=== PATIENT | female | born 1990 | race African-American/Black ===

== ENCOUNTER 2016-06-10 13:57 | Emergency (ER) | payer OTHER ==
[~2016-06-10] VITALS: Ht 157.5 cm; Wt 70.0 kg
[~2016-06-10 13:57] MED LIST: ALBU2TAB4 PO; ARIP1TAB5 PO; ARIP400I IM; CLON.5 PO; CLON0.1T PO; FERR1TAB36 PO; METF500T PO; PROZ20CA11 PO; VENTAER INH; ZANT150T2 PO
[2016-06-10 14:02] VITALS: BP 123/47; PULSE 81; RESP 14; TEMP 98.9; O2SAT 99
[2016-06-10] MEDS ORDERED: SODIUM CHLORIDE 0.9% FLUSH 5 ML FLUSH IVF PRN (14:15)
--- NOTE | 2016-06-10 14:31 | PD ---
HPI Chief Complaint: Seizure Time Seen by Provider: 14:09 Travel History International Travel<30 days: No Contact w/Intl Traveler<30days: No Traveled to known affect area: No History of Present Illness HPI Patient is a 26-year-old Re[place] female who presents to the emergency department via EMS after possible seizure. The patient states she has a history of seizures, was taken off of her medication by her psychiatrist, Dr. Flowers, at [facility]. The patient states she was at a friend's house sitting in a chair, when she suddenly fell 4, striking the front of her face on a chair, and then fallen asleep for approximately 30 minutes. The patient states her friends were calling out to her, but she did not awaken. When the patient did awaken she thought she might of had a seizure. She denies any tongue trauma or urinary incontinence. The patient denies any seizure-like activity. She denies any current headache, neck pain, chest pain, shortness breath, nausea, vomiting, or abdominal pain. She denies illicit drug use or alcohol use. PFSH Past Medical History Asthma: Yes Bipolar Disorder: Yes Anxiety: Yes Depression: Yes Cancer: No Cardiovascular Problems: No Cerebrovascular Accident: Yes Diabetes: Yes Diminished Hearing: No Endocrine: No Gastrointestinal Disorders: No Headaches: No Implanted Vascular Access Dvce: No Musculoskeletal: No Neurologic: Yes Psychiatric: Yes Respiratory: Yes (asthma) Seizures: Yes : 0 Para: 0 Miscarriage: 0 : 0 Past Surgical History Appendectomy: Yes Other Surgery: Yes Social History Alcohol Use: No Tobacco Use: Yes (1/2 PPD) Substance Use: No Allergies-Medications (Allergen,Severity, Reaction): Coded Allergies: Latuda (Verified Allergy, Severe, SEIZURE, 05/24/16) Cream (Unverified Allergy, Unknown, 05/24/16) new face soap Geodon (Verified Allergy, Unknown, Seizures, 05/24/16) pt claims she had "two seizures" while taking Geodon. *MDRO Multi-Drug Resistant Organism (Unverified Adverse Reaction, Unknown , 05/24/16) MRSA finger wound in 2004 & 2005. MRSA PCR Screen positive 11/28/14. Reported Meds & Prescriptions Reported Meds & Active Scripts Active Klonopin (Clonazepam) 0.5 Mg Tab 0.5 Mg PO BID Prozac (Fluoxetine HCl) 20 Mg Cap 20 Mg PO DAILY Clonidine (Clonidine HCl) 0.1 Mg Tab 0.1 Mg PO 1 - 2 HS Abilify Maintena ER Inj (Aripiprazole) 400 Mg Susp 400 Mg IM MONTHLY Reported Zantac (Ranitidine HCl) Unknown Strength Tab Unknown Dose PO BID Metformin (Metformin HCl) Unknown Strength Tab Unknown Dose PO BIDPC With meals Iron (Ferrous Sulfate) Unknown Strength Tab Unknown Dose PO BIDPC Take after a meal. Albuterol (Albuterol Sulfate) Unknown Strength Tab Unknown Dose PO TID Abilify (Aripiprazole) 10 Mg Tab 10 Mg PO HS Ventolin Hfa 18 GM Inh (Albuterol Sulfate) Unknown Strength Aer Unknown Dose INH Q4H PRN Review of Systems Except as stated in HPI: all other systems reviewed are Neg General / Constitutional: No: Fever Eyes: No: Blurred Vision HENT: No: Headaches, Lightheadedness, Neck Pain Cardiovascular: No: Chest Pain or Discomfort Respiratory: No: Shortness of Breath Gastrointestinal: No: Nausea, Abdominal Pain Genitourinary: No: Incontinence Musculoskeletal: No: Weakness Neurologic: Positive: Seizures Psychiatric: Positive: Mood Disorder (bipolar affective disorder) Physical Exam Narrative GENERAL: Awake, alert, 26-year-old female who appears her stated age and is in no acute respiratory distress. SKIN: Warm and dry. HEAD: Atraumatic. Normocephalic. No visible hematomas. EYES: Pupils equal and round. Extraocular. The left eye. ENT: No nasal bleeding or discharge. Mucous membranes pink and moist. NECK: Trachea midline. No JVD. CARDIOVASCULAR: Regular rate and rhythm. No murmur appreciated. RESPIRATORY: No accessory muscle use. Clear to auscultation. Breath sounds equal bilaterally. GASTROINTESTINAL: Abdomen soft, non-tender, nondistended. No rebound tenderness. MUSCULOSKELETAL: No obvious deformities. No clubbing. No cyanosis. No edema. NEUROLOGICAL: Awake and alert. No obvious cranial nerve deficits. Motor grossly within normal limits. Normal speech. Nonfocal. Oriented 4. PSYCHIATRIC: Appropriate mood and affect; insight and judgment normal. Data Data Last Documented VS Vital Signs Date Time Temp Pulse Resp B/P Pulse Ox O2 Delivery O2 Flow Rate FiO2 06/10/16 14:02 98.9 81 14 123/47 99 Orders Complete Blood Count With Diff (06/10/16 14:14) Electrocardiogram (06/10/16 ) Blood Glucose (06/10/16 14:14) Ecg Monitoring (06/10/16 14:14) Iv Access Insert/Monitor (06/10/16 14:14) Oximetry (06/10/16 14:14) Comprehensive Metabolic Panel (06/10/16 14:14) Sodium Chloride 0.9% Flush (Ns Flush) (06/10/16 14:15) Lactic Acid (06/10/16 14:14) Labs Laboratory Tests Test 06/10/16 14:30 White Blood Count 5.0 TH/MM3 Red Blood Count 4.38 MIL/MM3 Hemoglobin 12.2 GM/DL Hematocrit 36.7 % Mean Corpuscular Volume 83.9 FL Mean Corpuscular Hemoglobin 27.8 PG Mean Corpuscular Hemoglobin 33.1 % Concent Red Cell Distribution Width 13.9 % Platelet Count 307 TH/MM3 Mean Platelet Volume 9.4 FL Neutrophils (%) (Auto) 54.2 % Lymphocytes (%) (Auto) 31.8 % Monocytes (%) (Auto) 7.4 % Eosinophils (%) (Auto) 5.9 % Basophils (%) (Auto) 0.7 % Neutrophils # (Auto) 2.7 TH/MM3 Lymphocytes # (Auto) 1.6 TH/MM3 Monocytes # (Auto) 0.4 TH/MM3 Eosinophils # (Auto) 0.3 TH/MM3 Basophils # (Auto) 0.0 TH/MM3 CBC Comment DIFF FINAL Differential Comment Sodium Level 138 MEQ/L Potassium Level 4.4 MEQ/L Chloride Level 106 MEQ/L Carbon Dioxide Level 26.9 MEQ/L Anion Gap 5 MEQ/L Blood Urea Nitrogen 8 MG/DL Creatinine 0.63 MG/DL Estimat Glomerular Filtration 136 ML/MIN Rate Random Glucose 107 MG/DL Lactic Acid Level 1.8 mmol/L Calcium Level 9.2 MG/DL Total Bilirubin 0.2 MG/DL Aspartate Amino Transf 35 U/L (AST/SGOT) Alanine Aminotransferase 29 U/L (ALT/SGPT) Alkaline Phosphatase 162 U/L Total Protein 7.8 GM/DL Albumin 3.4 GM/DL [facility] Medical Decision Making Medical Screen Exam Complete: Yes Emergency Medical Condition: Yes Medical Record Reviewed: Yes Interpretation(s) EKG reveals supraventricular rhythm with a rate 86. No ischemic changes noted. Laboratory Tests Test 06/10/16 14:30 White Blood Count 5.0 TH/MM3 Red Blood Count 4.38 MIL/MM3 Hemoglobin 12.2 GM/DL Hematocrit 36.7 % Mean Corpuscular Volume 83.9 FL Mean Corpuscular Hemoglobin 27.8 PG Mean Corpuscular Hemoglobin 33.1 % Concent Red Cell Distribution Width 13.9 % Platelet Count 307 TH/MM3 Mean Platelet Volume 9.4 FL Neutrophils (%) (Auto) 54.2 % Lymphocytes (%) (Auto) 31.8 % Monocytes (%) (Auto) 7.4 % Eosinophils (%) (Auto) 5.9 % Basophils (%) (Auto) 0.7 % Neutrophils # (Auto) 2.7 TH/MM3 Lymphocytes # (Auto) 1.6 TH/MM3 Monocytes # (Auto) 0.4 TH/MM3 Eosinophils # (Auto) 0.3 TH/MM3 Basophils # (Auto) 0.0 TH/MM3 CBC Comment DIFF FINAL Differential Comment Sodium Level 138 MEQ/L Potassium Level 4.4 MEQ/L Chloride Level 106 MEQ/L Carbon Dioxide Level 26.9 MEQ/L Anion Gap 5 MEQ/L Blood Urea Nitrogen 8 MG/DL Creatinine 0.63 MG/DL Estimat Glomerular Filtration 136 ML/MIN Rate Random Glucose 107 MG/DL Lactic Acid Level 1.8 mmol/L Calcium Level 9.2 MG/DL Total Bilirubin 0.2 MG/DL Aspartate Amino Transf 35 U/L (AST/SGOT) Alanine Aminotransferase 29 U/L (ALT/SGPT) Alkaline Phosphatase 162 U/L Total Protein 7.8 GM/DL Albumin 3.4 GM/DL Differential Diagnosis Differential diagnosis includes seizure, pseudoseizure, syncope, psychiatric disorder, electrolyte abnormality, arrhythmia. Narrative Course Established, labs wer drawn and sent, and the patient was monitored in the emergency department. EKG was ordered and interpreted. The patient's EKG is unremarkable. Lactic acid is normal, I doubt significant seizure activity. Bicarbonate is normal. Electrolytes including sodium and calcium are normal. Patient was monitored in the emergency department and was stable. There is no further seizure activity or syncopal episode activity. Patient does have underlying psychiatric disorder, she is advised to follow-up with her psychiatrist. Diagnosis Primary Impression: Seizure Patient Instructions: General Instructions Additional Instructions: Follow-up with her primary physician. Return if symptoms worsen or progress. Disposition: 01 DISCHARGE HOME Condition: Stable Demond Lind MD Jun 10, 2016 14:31
[2016-06-10 15:02] LABS: AUTOMATED NEUTROPHIL # 2.7 TH/MM3 (1.8-7.7); BASOPHIL % 0.7 % (0.0-2.0); EOSINOPHIL # 0.3 TH/MM3 (0-0.4); EOSINOPHIL % 5.9 % (0.0-4.0); HEMATOCRIT 36.7 % (35.0-46.0); HEMO FLAGS DIFF FINAL; LYMPH % 31.8 % (9.0-44.0); LYMPHOCYTE # 1.6 TH/MM3 (1.0-4.8); MEAN CELL VOLUME 83.9 FL (80.0-100.0); MEAN CORPUSCULAR HEMOGLOBIN 27.8 PG (27.0-34.0); MEAN CORPUSCULAR HGB CONC 33.1 % (32.0-36.0); MONO % 7.4 % (0.0-8.0); NEUT % 54.2 % (16.0-70.0); PLATELET COUNT 307 TH/MM3 (150-450); RED BLOOD COUNT 4.38 MIL/MM3 (4.00-5.30); RED CELL DISTRIBUTION WIDTH 13.9 % (11.6-17.2)
[2016-06-10 15:24] LABS: ALKALINE PHOSPHATASE 162 U/L (45-117); ALT (GPT) 29 U/L (10-53); ANION GAP 5 MEQ/L (5-15); AST (GOT) 35 U/L (15-37); BICARBONATE 26.9 MEQ/L (21.0-32.0); BLOOD UREA NITROGEN 8 MG/DL (7-18); CHLORIDE 106 MEQ/L (98-107); GLOMERULAR FILTRATION RATE 136 ML/MIN (>89); SODIUM (NA) 138 MEQ/L (136-145); TOTAL BILIRUBIN ADULT 0.2 MG/DL (0.2-1.0)
[2016-06-10 15:26] LABS: POTASSIUM 4.4 MEQ/L (3.5-5.1)
[2016-06-10 18:00] VITALS: BP 136/40; PULSE 80; RESP 14; O2SAT 97
--- NOTE | 2016-06-10 22:03 | EKG ---
Date Performed: 06/10/2016 Time Performed: 14:33:00 PTAGE: 26 years EKG: Normal Sinus rhythm MODERATE VOLTAGE CRITERIA FOR LVH, CONSIDER NORMAL VARIANT BORDERLINE ECG INTERPRETATION BASED ON A DEFAULT AGE OF 40 YEARS PREVIOUS TRACING : 11/06/2015 12.20 Since previous tracing, no significant change noted DOCTOR: Saulo Swain Interpretating Date/Time 06/10/2016 22:01:45
[2016-06-21] MEDS ORDERED: ARIP400I IM (11:05)
[2016-06-22] MEDS ORDERED: LO LTAB PO (15:54)
[2016-07-27] MEDS ORDERED: ARIP400I IM ×2 (11:22→13:52)
[2016-08-24] MEDS ORDERED: ARIP400I IM ×2 (07:24→14:09)
[2016-08-24] MEDS ORDERED: CLON.5 PO (14:09)
[2016-08-24] MEDS ORDERED: PROZ20CA11 PO (14:09)
[2016-08-24] MEDS ORDERED: CLON0.1T PO (14:09)
[2016-09-23] MEDS ORDERED: ARIP400I IM (07:34)
[2016-09-23] MEDS ORDERED: CLON0.2T PO ×2 (13:42→13:43)
[2016-10-26] MEDS ORDERED: ARIP400I IM (07:28)
[2016-10-27] MEDS ORDERED: ARIP400I IM ×2 (07:48→10:01)
[2016-10-27] MEDS ORDERED: PROZ20CA11 PO (10:01)
[2016-10-27] MEDS ORDERED: CLON0.2T PO (10:01)
[2016-11-28] MEDS ORDERED: ARIP400I IM (09:08)
[2016-11-28] MEDS ORDERED: LO LTAB PO (14:23)
[2016-11-28] MEDS ORDERED: FERR324T4 PO (14:23)
[2016-11-28] MEDS ORDERED: NEBULIZER1 MI1 (14:23)
[2016-11-28] MEDS ORDERED: VENTAER INH (14:23)
[2016-11-28] MEDS ORDERED: ALBU.5I NEB (14:30)
== END 2016-06-10 18:26 | disposition home or self-care (01) ==
LOC: NEDAMB 13:57
DX: R56.9 Unspecified convulsions (principal); R94.31 Abnormal electrocardiogram [ECG] [EKG]; F17.210 Nicotine dependence, cigarettes, uncomplicated; W18.09XA Striking against other object with subsequent fall, initial encounter; E11.9 Type 2 diabetes mellitus without complications; Z79.84 Long term (current) use of oral hypoglycemic drugs
CPT/HCPCS: 80053; 83605; 85025; 93005

== ENCOUNTER 2016-06-15 16:00 | Emergency (ER) | payer OTHER ==
[~2016-06-15] VITALS: Ht 152.4 cm; Wt 65.0 kg
--- NOTE | 2016-06-15 16:38 | PD ---
HPI Chief Complaint: ba Time Seen by Provider: 16:38 Travel History International Travel<30 days: No Contact w/Intl Traveler<30days: No Traveled to known affect area: No History of Present Illness HPI 26-year-old female with history of bipolar disorder presents to the emergency department under Ocampo act. Patient states that she wants to kill herself. She does not discuss the plan. Denies any acute medical needs. Has no other symptoms reported this time. PFSH Past Medical History Asthma: Yes Bipolar Disorder: Yes Anxiety: Yes Depression: Yes Cancer: No Cardiovascular Problems: No Cerebrovascular Accident: Yes Diabetes: Yes Diminished Hearing: No Endocrine: No Gastrointestinal Disorders: No Headaches: No Implanted Vascular Access Dvce: No Musculoskeletal: No Neurologic: Yes Psychiatric: Yes Respiratory: Yes (asthma) Seizures: Yes : 0 Para: 0 Miscarriage: 0 : 0 Past Surgical History Appendectomy: Yes Other Surgery: Yes Social History Alcohol Use: No Tobacco Use: Yes (06/06 PPD) Substance Use: No Allergies-Medications (Allergen,Severity, Reaction): Coded Allergies: Latuda (Verified Allergy, Severe, SEIZURE, 06/15/16) Cream (Unverified Allergy, Unknown, 06/15/16) new face soap Geodon (Verified Allergy, Unknown, Seizures, 06/15/16) pt claims she had "two seizures" while taking Geodon. *MDRO Multi-Drug Resistant Organism (Unverified Adverse Reaction, Unknown , 06/15/16) MRSA finger wound in 2004 & 2005. MRSA PCR Screen positive 11/28/14. Reported Meds & Prescriptions Reported Meds & Active Scripts Active Klonopin (Clonazepam) 0.5 Mg Tab 0.5 Mg PO BID Prozac (Fluoxetine HCl) 20 Mg Cap 20 Mg PO DAILY Clonidine (Clonidine HCl) 0.1 Mg Tab 0.1 Mg PO 1 - 2 HS Abilify Maintena ER Inj (Aripiprazole) 400 Mg Susp 400 Mg IM MONTHLY Reported Zantac (Ranitidine HCl) Unknown Strength Tab Unknown Dose PO BID Metformin (Metformin HCl) Unknown Strength Tab 500 Mg PO BIDPC With meals Iron (Ferrous Sulfate) Unknown Strength Tab Unknown Dose PO BIDPC Take after a meal. Abilify (Aripiprazole) 10 Mg Tab 10 Mg PO HS Ventolin Hfa 18 GM Inh (Albuterol Sulfate) Unknown Strength Aer Unknown Dose INH Q4H PRN Review of Systems Except as stated in HPI: all other systems reviewed are Neg Physical Exam Narrative GENERAL: Well-nourished, well-developed male patient in no acute distress SKIN: Warm and dry. HEAD: Normocephalic. EYES: No scleral icterus. No injection or drainage. NECK: Supple, trachea midline. No JVD or lymphadenopathy. CARDIOVASCULAR: Regular rate and rhythm without murmurs, gallops, or rubs. RESPIRATORY: Breath sounds equal bilaterally. No accessory muscle use. GASTROINTESTINAL: Abdomen soft, non-tender, nondistended. MUSCULOSKELETAL: No cyanosis, or edema. BACK: Nontender without obvious deformity. No CVA tenderness. Data Data Last Documented VS Vital Signs Date Time Temp Pulse Resp B/P Pulse Ox O2 Delivery O2 Flow Rate FiO2 06/15/16 22:00 68 19 123/68 97 Room Air 06/15/16 17:26 97.1 Orders Complete Blood Count With Diff (06/15/16 16:37) Basic Metabolic Panel (Bmp) (06/15/16 16:37) Drug Screen, Random Urine (06/15/16 16:37) Alcohol (Ethanol) (06/15/16 16:37) Psych Screen (06/15/16 16:37) Ed Urine Pregnancytest Poc (06/15/16 16:37) Labs Laboratory Tests Test 06/15/16 17:25 White Blood Count 6.2 TH/MM3 Red Blood Count 4.39 MIL/MM3 Hemoglobin 12.0 GM/DL Hematocrit 37.0 % Mean Corpuscular Volume 84.2 FL Mean Corpuscular Hemoglobin 27.4 PG Mean Corpuscular Hemoglobin 32.6 % Concent Red Cell Distribution Width 13.9 % Platelet Count 285 TH/MM3 Mean Platelet Volume 9.0 FL Neutrophils (%) (Auto) 55.3 % Lymphocytes (%) (Auto) 30.4 % Monocytes (%) (Auto) 7.0 % Eosinophils (%) (Auto) 6.5 % Basophils (%) (Auto) 0.8 % Neutrophils # (Auto) 3.4 TH/MM3 Lymphocytes # (Auto) 1.9 TH/MM3 Monocytes # (Auto) 0.4 TH/MM3 Eosinophils # (Auto) 0.4 TH/MM3 Basophils # (Auto) 0.0 TH/MM3 CBC Comment DIFF FINAL Differential Comment Sodium Level 138 MEQ/L Potassium Level 4.1 MEQ/L Chloride Level 106 MEQ/L Carbon Dioxide Level 23.3 MEQ/L Anion Gap 9 MEQ/L Blood Urea Nitrogen 11 MG/DL Creatinine 0.56 MG/DL Estimat Glomerular Filtration 156 ML/MIN Rate Random Glucose 81 MG/DL Calcium Level 9.1 MG/DL Urine Opiates Screen NEG Urine Barbiturates Screen NEG Urine Amphetamines Screen NEG Urine Benzodiazepines Screen NEG Urine Cocaine Screen NEG Urine Cannabinoids Screen NEG Ethyl Alcohol Level LESS THAN 3 MG/DL MDM Medical Decision Making Medical Screen Exam Complete: Yes Emergency Medical Condition: Yes Medical Record Reviewed: Yes Differential Diagnosis Mood disorder versus personality disorder versus adjustment reaction disorder Narrative Course 26 year-old female presents to emergency department for evaluation a Ocampo. Patient appears without distress. Her vital signs are stable. Lab work is without acute concern. Patient is medically cleared to undergo psychiatric screening for further evaluation and disposition. Mental health screening discussed with the patient. Psychiatric screen ordered. Diagnosis Primary Impression: Bipolar disorder Qualified Code: F31.9 - Bipolar affective disorder, remission status unspecified Condition: Stable Amanda Le Jun 15, 2016 16:38
[2016-06-15 17:26] VITALS: BP 121/69; PULSE 75; RESP 16; TEMP 97.1; O2SAT 99
[2016-06-15 17:44] LABS: AUTOMATED NEUTROPHIL # 3.4 TH/MM3 (1.8-7.7); BASOPHIL % 0.8 % (0.0-2.0); EOSINOPHIL # 0.4 TH/MM3 (0-0.4); EOSINOPHIL % 6.5 % (0.0-4.0); HEMO FLAGS DIFF FINAL; LYMPH % 30.4 % (9.0-44.0); LYMPHOCYTE # 1.9 TH/MM3 (1.0-4.8); MEAN CELL VOLUME 84.2 FL (80.0-100.0); MEAN CORPUSCULAR HEMOGLOBIN 27.4 PG (27.0-34.0); MEAN CORPUSCULAR HGB CONC 32.6 % (32.0-36.0); NEUT % 55.3 % (16.0-70.0); PLATELET COUNT 285 TH/MM3 (150-450); RED BLOOD COUNT 4.39 MIL/MM3 (4.00-5.30); RED CELL DISTRIBUTION WIDTH 13.9 % (11.6-17.2); WHITE BLOOD COUNT 6.2 TH/MM3 (4.0-11.0)
[2016-06-15 18:06] LABS: ANION GAP 9 MEQ/L (5-15); BICARBONATE 23.3 MEQ/L (21.0-32.0); BLOOD UREA NITROGEN 11 MG/DL (7-18); CHLORIDE 106 MEQ/L (98-107); GLOMERULAR FILTRATION RATE 156 ML/MIN (>89); POTASSIUM 4.1 MEQ/L (3.5-5.1); SODIUM (NA) 138 MEQ/L (136-145)
[2016-06-15 18:16] LABS: AMPHETAMINE, URINE NEG (NEG); BARBITURATES, URINE NEG (NEG); COCAINE, URINE NEG (NEG)
[2016-06-15 22:00] VITALS: BP 123/68; PULSE 68; RESP 19; O2SAT 97
[2016-06-16 02:00] VITALS: BP 116/77; PULSE 76; RESP 19; O2SAT 98
[2016-06-16 06:40] VITALS: BP 128/59; PULSE 86; RESP 17; O2SAT 98
[2016-06-16 10:37] VITALS: BP 143/76; PULSE 83; RESP 16; O2SAT 99
[2016-06-16 14:41] VITALS: BP 143/76
--- NOTE | 2016-06-16 17:10 | MB ---
cc: STEVE MARSH MD DATE OF CONSULTATION: 06/16/2016 PHYSICIAN REQUESTING CONSULTATION Emergency Department. REASON FOR CONSULTATION Ocampo Act. HISTORY OF PRESENT ILLNESS Ms. Tran is a 26-year-old -[place]e female with a history of schizophrenia and anxiety disorder who presents under a [place]o Act from [place] [employer] alleging that the patient got into an argument with her friend's father and threatened to hang herself. Reviewing the electronic medical record, I note that the patient follows with Dr. Steve on an outpatient basis and last saw him on May 11 of last year. At that time he added some Klonopin to her existing regimen including Abilify Maintena, clonidine and Prozac. I note that the patient was also admitted psychiatrically most recently under Dr. Sparks in October of 2014. The patient seen and examined. Case discussed with nurse in the J Pod. There has been no evidence of any suicidality or homicidality in the J Pod. On my examination today, the patient denies any suicidal or homicidal ideation. She says that she wants to live for herself and her mother and father. She says that she was feeling stressed yesterday because she got into an argument with her friend's father over a video game system but she says that she feels better now. She says that she issued these threats because "I was angry and I was just saying that." She denies any issues with low mood or elevated mood, nor can I elicit any depressive or hypomanic/manic symptoms. She reports that she is sleeping and eating well. She denies any audiovisual hallucinations and I can elicit no delusional beliefs including but not limited to paranoia, ideas of reference, thought insertion or withdrawal or grandiosity. The remainder of the psychiatric ROS is negative. I have obtained collateral from the patient's mother Elisa Gamino at [phone]. Ms. Gamino has absolutely no concerns about the patient being a risk of harm to herself or others. She notes that the patient will be returning home with her because the patient's father with whom she normally stays is currently having surgery. I have recommended that Ms. Gamino secure the home of all potential means of harm to self or others out of an abundance of caution and I have recommended that she have the patient return to the emergency department under the [place]campo Act if there are any concerning symptoms. PAST PSYCHIATRIC HISTORY The patient has a prior history of schizophrenia and anxiety. She follows with Dr. Steve. Her most recent psychiatric admission was here in 2014. She says that she tried to drown herself that time. Denies other history of suicide attempts. FAMILY HISTORY The patient reports that her brother attempted suicide but denies any family history of psychiatric illness. CHEMICAL DEPENDENCY HISTORY The patient denies any history of abuse of drugs or alcohol. SOCIAL HISTORY The patient reports that she lives with her father. She is high school educated. She is on disability. She is single and has no children. Denies any or legal history. Denies any access to guns or firearms. PAST MEDICAL HISTORY Includes a history of seizure disorder. She says that her last seizure was last week. She typically has staring spells. She also has a history of asthma. REVIEW OF SYSTEMS No reported headache, vision or hearing changes, chest pain, shortness of breath, bowel or bladder issues. No other somatic complaints. PHYSICAL EXAMINATION A physical examination was completed in the emergency room by the ER staff. On my examination today, the patient appears to be in no acute physical distress. No abnormal motor movements noted. Labs and vital signs reviewed. MENTAL STATUS EXAMINATION The patient is in a hospital gown. She is well-groomed and maintaining basic hygiene. She is awake and alert and oriented to person and hospital at least. No abnormal motor movements noted. Speech is a little bit raspy in quality but otherwise within normal limits for rate, tone and volume. Language and fund of knowledge seem mildly reduced for age. Mood is fair and affect is blunted. Thought process linear. No loosening of associations. No evident delusions. Denies audiovisual hallucinations. Denies suicidal or homicidal ideation. Insight and judgment are poor, likely chronically so. ASSESSMENT AND PLAN 1. Adjustment disorder, unspecified, F43.20. 2. History of schizophrenia and generalized anxiety, both presently stable. This is a 26-year-old -[place] female with psychiatric history as detailed above who presents under a [place]o Act after issuing suicidal threats following an argument with her friend's father. The patient says that she made these threats out of anger because they were arguing over a video game system. She denies any suicidal or homicidal ideation now. I can detect no presently unstable mood, anxiety or psychotic disorder in this patient. I have obtained reassuring collateral from the patient's mother. Weighing the acute, chronic, and protective factors and based on the available evidence, I blemish remover to a reasonable degree of medical certainty that the patient is at low imminent risk of harm to self or others from mental illness as defined under the [place]campo Act and her level of function is adequate for outpatient care. I have lifted the Ocampo Act as she does not meet Ocampo Act criteria. The patient is to followup with her outpatient psychiatric provider Dr. Steve. The patient is to remain adherent with medications. The patient is to return to the psychiatric emergency room for any concerning psychiatric symptoms. Case discussed with RN in the J Pod. Thank you very much for this consultation. Steve [place] /1:43 PM /4:35 PM [place]
[2016-06-21] MEDS ORDERED: ARIP400I IM (11:05)
[2016-06-22] MEDS ORDERED: LO LTAB PO (15:54)
[2016-07-27] MEDS ORDERED: ARIP400I IM ×2 (11:22→13:52)
[2016-08-24] MEDS ORDERED: ARIP400I IM ×2 (07:24→14:09)
[2016-08-24] MEDS ORDERED: CLON.5 PO (14:09)
[2016-08-24] MEDS ORDERED: CLON0.1T PO (14:09)
[2016-08-24] MEDS ORDERED: PROZ20CA11 PO (14:09)
[2016-09-23] MEDS ORDERED: ARIP400I IM (07:34)
[2016-09-23] MEDS ORDERED: CLON0.2T PO ×2 (13:42→13:43)
[2016-10-26] MEDS ORDERED: ARIP400I IM (07:28)
[2016-10-27] MEDS ORDERED: ARIP400I IM ×2 (07:48→10:01)
[2016-10-27] MEDS ORDERED: CLON0.2T PO (10:01)
[2016-10-27] MEDS ORDERED: PROZ20CA11 PO (10:01)
[2016-11-28] MEDS ORDERED: ARIP400I IM (09:08)
[2016-11-28] MEDS ORDERED: VENTAER INH (14:23)
[2016-11-28] MEDS ORDERED: NEBULIZER1 MI1 (14:23)
[2016-11-28] MEDS ORDERED: FERR324T4 PO (14:23)
[2016-11-28] MEDS ORDERED: LO LTAB PO (14:23)
[2016-11-28] MEDS ORDERED: ALBU.5I NEB (14:30)
== END 2016-06-16 15:18 | disposition home or self-care (01) ==
LOC: NEDAMB 16:00 → NEPJ 06-16 15:18
DX: F43.20 Adjustment disorder, unspecified (principal); F41.1 Generalized anxiety disorder; F20.9 Schizophrenia, unspecified; J45.909 Unspecified asthma, uncomplicated; E11.9 Type 2 diabetes mellitus without complications
CPT/HCPCS: 80048; 80307; 80320; 84703; 85025; 99283

== ENCOUNTER 2016-09-15 00:43 | Emergency (ER) | payer OTHER ==
[~2016-09-15 00:43] MED LIST changes: -ALBU2TAB4 PO; -ARIP1TAB5 PO; +LO LTAB PO; -METF500T PO; -ZANT150T2 PO
[2016-09-15] MEDS ORDERED: RESP: ALBUTEROL 2.5 MG/IPRATROPIUM 0.5 MG NEB (SCH) INH ONE (01:15)
--- NOTE | 2016-09-15 01:15 | PD ---
HPI Chief Complaint: Ocampo act Time Seen by Provider: 01:11 Travel History International Travel<30 days: No Contact w/Intl Traveler<30days: No Traveled to known affect area: No History of Present Illness HPI 26-year-old black female presents to emergency department under Ocampo act by PD. The patient had made statements that she was feeling depressed and wanting herself. She had contemplated taking herself with a rope. She denies any toxic ingestions. She states that she has not done anything today to hurt herself. She does have a history of asthma and is been sick recently. She has had congestion and cough. She denies any fever chills. No nausea vomiting. No abdominal pain and urine symptoms. She admits to smoking marijuana. No homicidal ideation. PFSH Past Medical History Narrative Medical Bipolar, schizophrenia, asthma Asthma: Yes Bipolar Disorder: Yes Anxiety: Yes Depression: Yes Cancer: No Cardiovascular Problems: No Cerebrovascular Accident: Yes Diabetes: Yes Diminished Hearing: No Endocrine: No Gastrointestinal Disorders: No Headaches: No Implanted Vascular Access Dvce: No Musculoskeletal: No Neurologic: Yes Psychiatric: Yes Respiratory: Yes (asthma) Seizures: Yes Tetanus Vaccination: < 5 Years : 0 Para: 0 Miscarriage: 0 : 0 Past Surgical History Narrative Surgical Appendectomy Appendectomy: Yes Other Surgery: Yes Social History Alcohol Use: No Tobacco Use: Yes (1/2 PPD) Substance Use: Yes Allergies-Medications (Allergen,Severity, Reaction): Coded Allergies: Latuda (Verified Allergy, Severe, SEIZURE, 08/24/16) Cream (Unverified Allergy, Unknown, 08/24/16) new face soap Geodon (Verified Allergy, Unknown, Seizures, 08/24/16) pt claims she had "two seizures" while taking Geodon. *MDRO Multi-Drug Resistant Organism (Unverified Adverse Reaction, Unknown , 08/24/16) MRSA finger wound in 2004 & 2005. MRSA PCR Screen positive 11/28/14. Reported Meds & Prescriptions Reported Meds & Active Scripts Active Abilifmellisa Maintena ER Inj (Aripiprazole) 400 Mg Susp 400 Mg IM MONTHLY Klonopin (Clonazepam) 0.5 Mg Tab 0.5 Mg PO BID Prozac (Fluoxetine HCl) 20 Mg Cap 20 Mg PO DAILY Clonidine (Clonidine HCl) 0.1 Mg Tab 0.1 Mg PO 1 - 2 HS Lo Loestrin Fe 1/10 (Norethindrone-Ethinyl Estradiol-Fe) 1-10 Mg-Mcg Tab 1 Tab PO DAILY Reported Iron (Ferrous Sulfate) Unknown Strength Tab Unknown Dose PO BIDPC Take after a meal. Ventolin Hfa 18 GM Inh (Albuterol Sulfate) Unknown Strength Aer Unknown Dose INH Q4H PRN Review of Systems ROS Limitations: Intoxication, Poor Historian Except as stated in HPI: all other systems reviewed are Neg Physical Exam Narrative GENERAL: Well-nourished, well-developed patient. Appears intoxicated. SKIN: Warm and dry. HEAD: Normocephalic and atraumatic. EYES: No scleral icterus. No injection or drainage. ENT: No nasal drainage noted. Mucous membranes pink. Airway patent. NECK: Supple, trachea midline. Moves head freely without obvious discomfort. CARDIOVASCULAR: Regular rate and rhythm without murmurs, gallops, or rubs. RESPIRATORY: Scattered rhonchi with few expiratory wheezes. GASTROINTESTINAL: Abdomen soft, non-tender, nondistended. EXTREMITIES: No cyanosis or edema. BACK: Nontender without obvious deformity. No CVA tenderness. NEURO: Patient is alert and oriented. no sensorimotor deficits. Nonfocal. Normal speech. PSYCH: No delusions. No auditory or visual hallucinations. Data Data Last Documented VS Vital Signs Date Time Temp Pulse Resp B/P Pulse Ox O2 Delivery O2 Flow Rate FiO2 09/15/16 01:26 97.6 98 18 134/82 99 Orders Complete Blood Count With Diff (09/15/16 00:58) Comprehensive Metabolic Panel (09/15/16 00:58) Ed Urine Pregnancytest Poc (09/15/16 00:58) Psych Screen (09/15/16 00:58) Drug Screen, Random Urine (09/15/16 00:58) Alcohol (Ethanol) (09/15/16 00:58) Salicylates (Aspirin) (09/15/16 00:58) Tylenol (Acetaminophen) (09/15/16 00:58) Chest, Single Ap (09/15/16 01:15) Albuterol-Ipratropium Neb (Duoneb Neb) (09/15/16 01:15) Labs Laboratory Tests Test 09/15/16 01:05 White Blood Count 7.2 TH/MM3 Red Blood Count 4.15 MIL/MM3 Hemoglobin 11.8 GM/DL Hematocrit 35.4 % Mean Corpuscular Volume 85.3 FL Mean Corpuscular Hemoglobin 28.5 PG Mean Corpuscular Hemoglobin 33.4 % Concent Red Cell Distribution Width 14.7 % Platelet Count 285 TH/MM3 Mean Platelet Volume 9.1 FL Neutrophils (%) (Auto) 57.2 % Lymphocytes (%) (Auto) 27.5 % Monocytes (%) (Auto) 9.4 % Eosinophils (%) (Auto) 5.4 % Basophils (%) (Auto) 0.5 % Neutrophils # (Auto) 4.1 TH/MM3 Lymphocytes # (Auto) 2.0 TH/MM3 Monocytes # (Auto) 0.7 TH/MM3 Eosinophils # (Auto) 0.4 TH/MM3 Basophils # (Auto) 0.0 TH/MM3 CBC Comment DIFF FINAL Differential Comment Sodium Level 140 MEQ/L Potassium Level 3.4 MEQ/L Chloride Level 106 MEQ/L Carbon Dioxide Level 25.9 MEQ/L Anion Gap 8 MEQ/L Blood Urea Nitrogen 5 MG/DL Creatinine 0.64 MG/DL Estimat Glomerular Filtration 134 ML/MIN Rate Random Glucose 127 MG/DL Calcium Level 8.7 MG/DL Total Bilirubin 0.2 MG/DL Aspartate Amino Transf 21 U/L (AST/SGOT) Alanine Aminotransferase 24 U/L (ALT/SGPT) Alkaline Phosphatase 155 U/L Total Protein 7.7 GM/DL Albumin 3.4 GM/DL Salicylates Level 2.0 MG/DL Urine Opiates Screen NEG Acetaminophen Level LESS THAN 2.0 MCG/ML Urine Barbiturates Screen NEG Urine Amphetamines Screen NEG Urine Benzodiazepines Screen NEG Urine Cocaine Screen NEG Urine Cannabinoids Screen POS Ethyl Alcohol Level LESS THAN 3 MG/DL MDM Medical Decision Making Medical Screen Exam Complete: Yes Emergency Medical Condition: Yes Medical Record Reviewed: Yes Interpretation(s) Laboratory Tests Test 09/15/16 01:05 White Blood Count 7.2 TH/MM3 Red Blood Count 4.15 MIL/MM3 Hemoglobin 11.8 GM/DL Hematocrit 35.4 % Mean Corpuscular Volume 85.3 FL Mean Corpuscular Hemoglobin 28.5 PG Mean Corpuscular Hemoglobin 33.4 % Concent Red Cell Distribution Width 14.7 % Platelet Count 285 TH/MM3 Mean Platelet Volume 9.1 FL Neutrophils (%) (Auto) 57.2 % Lymphocytes (%) (Auto) 27.5 % Monocytes (%) (Auto) 9.4 % Eosinophils (%) (Auto) 5.4 % Basophils (%) (Auto) 0.5 % Neutrophils # (Auto) 4.1 TH/MM3 Lymphocytes # (Auto) 2.0 TH/MM3 Monocytes # (Auto) 0.7 TH/MM3 Eosinophils # (Auto) 0.4 TH/MM3 Basophils # (Auto) 0.0 TH/MM3 CBC Comment DIFF FINAL Differential Comment Sodium Level 140 MEQ/L Potassium Level 3.4 MEQ/L Chloride Level 106 MEQ/L Carbon Dioxide Level 25.9 MEQ/L Anion Gap 8 MEQ/L Blood Urea Nitrogen 5 MG/DL Creatinine 0.64 MG/DL Estimat Glomerular Filtration 134 ML/MIN Rate Random Glucose 127 MG/DL Calcium Level 8.7 MG/DL Total Bilirubin 0.2 MG/DL Aspartate Amino Transf 21 U/L (AST/SGOT) Alanine Aminotransferase 24 U/L (ALT/SGPT) Alkaline Phosphatase 155 U/L Total Protein 7.7 GM/DL Albumin 3.4 GM/DL Salicylates Level 2.0 MG/DL Urine Opiates Screen NEG Acetaminophen Level LESS THAN 2.0 MCG/ML Urine Barbiturates Screen NEG Urine Amphetamines Screen NEG Urine Benzodiazepines Screen NEG Urine Cocaine Screen NEG Urine Cannabinoids Screen POS Ethyl Alcohol Level LESS THAN 3 MG/DL Chest x-ray: Negative for infiltrate Differential Diagnosis MDM: High Differential diagnoses: Schizophrenia, schizoaffective disorder, bipolar, anxiety, depression, adjustment reaction, mood disorder NOS, ODD, depressive disorder NOS, dementia, dementia with agitation, psychosis NOS, substance induced mood disorder, intermittent explosive disorder, Asperger syndrome, infection,electrolyte abnormality, malingering. Narrative Course Mental health screening discussed with the patient. Psychiatric screen ordered. The patient is given a DuoNeb along with x-ray of her chest. This is bipolar-depressed Diagnosis Primary Impression: Bipolar affect, depressed Qualified Code: F31.4 - Bipolar disorder, current episode depressed, severe, without psychotic features Additional Impression: Medical clearance for psychiatric admission Condition: Antonio Myers Sep 15, 2016 01:15
[2016-09-15 01:26] VITALS: BP 134/82; PULSE 98; RESP 18; TEMP 97.6; O2SAT 99
[2016-09-15 01:30] LABS: AUTOMATED NEUTROPHIL # 4.1 TH/MM3 (1.8-7.7); BASOPHIL % 0.5 % (0.0-2.0); EOSINOPHIL # 0.4 TH/MM3 (0-0.4); EOSINOPHIL % 5.4 % (0.0-4.0); HEMATOCRIT 35.4 % (35.0-46.0); HEMO FLAGS DIFF FINAL; LYMPH % 27.5 % (9.0-44.0); MEAN CELL VOLUME 85.3 FL (80.0-100.0); MEAN CORPUSCULAR HEMOGLOBIN 28.5 PG (27.0-34.0); MEAN CORPUSCULAR HGB CONC 33.4 % (32.0-36.0); MONO % 9.4 % (0.0-8.0); NEUT % 57.2 % (16.0-70.0); PLATELET COUNT 285 TH/MM3 (150-450); RED BLOOD COUNT 4.15 MIL/MM3 (4.00-5.30); RED CELL DISTRIBUTION WIDTH 14.7 % (11.6-17.2); WHITE BLOOD COUNT 7.2 TH/MM3 (4.0-11.0)
[2016-09-15 01:33] LABS: AMPHETAMINE, URINE NEG (NEG); BARBITURATES, URINE NEG (NEG); COCAINE, URINE NEG (NEG)
[2016-09-15 01:44] LABS: ANION GAP 8 MEQ/L (5-15)
--- NOTE | 2016-09-15 01:47 | RADRPT ---
EXAM DATE/TIME: 09/15/2016 01:25 [facility] COMPARISON: CHEST SINGLE AP, November 06, 2015, 12:31. INDICATIONS : Cough. MEDICAL HISTORY : None. SURGICAL HISTORY : None. ENCOUNTER: Initial ACUITY: 1 day PAIN SCORE: 0/10 LOCATION: Bilateral chest FINDINGS: A single view of the chest demonstrates the lungs to be symmetrically aerated without evidence of mas s, infiltrate or effusion. The cardiomediastinal contours are unremarkable. Osseous structures are intact. CONCLUSION: No acute disease. Greg Adams MD on September 15, 2016 at 1:46 Board Certified Radiologist. This report was verified electronically.
[2016-09-15 01:53] LABS: ACETAMINOPHEN LESS THAN 2.0 MCG/ML (10.0-30.0); ALKALINE PHOSPHATASE 155 U/L (45-117); ALT (GPT) 24 U/L (10-53); AST (GOT) 21 U/L (15-37); BICARBONATE 25.9 MEQ/L (21.0-32.0); BLOOD UREA NITROGEN 5 MG/DL (7-18); CHLORIDE 106 MEQ/L (98-107); GLOMERULAR FILTRATION RATE 134 ML/MIN (>89); POTASSIUM 3.4 MEQ/L (3.5-5.1); SODIUM (NA) 140 MEQ/L (136-145); TOTAL BILIRUBIN ADULT 0.2 MG/DL (0.2-1.0)
[2016-09-15 09:03] VITALS: BP 156/86; PULSE 81; RESP 17; O2SAT 96
[2016-09-15] MEDS ORDERED: RESP: ALBUTEROL 2.5 MG/IPRATROPIUM 0.5 MG NEB (PRN) NEB (10:00)
--- NOTE | 2016-09-15 12:25 | PD ---
History of Present Illness Chief Complaint: Psychiatric Symptoms Time Seen by Provider: 11:00 Travel History International Travel<30 Days: No Contact w/Intl Traveler<30days: No Known affected area: No Legal Status Legal Status: Ocampo Act O[place]o Act Signed By: History of Present Illness: Pt is well known to this MD. She verbally contracts for safety and denies SI/HI/ psychoses. She does not meet BA criteria and does not meet inpatient criteria. PFSH Past Medical History Asthma: Yes Bipolar Disorder: Yes Anxiety: Yes Depression: Yes Cancer: No Cardiovascular Problems: No Cerebrovascular Accident: Yes Diabetes: Yes Diminished Hearing: No Endocrine: No Gastrointestinal Disorders: No Headaches: No Implanted Vascular Access Dvce: No Musculoskeletal: No Neurologic: Yes Psychiatric: Yes Respiratory: Yes (asthma) Seizures: Yes Tetanus Vaccination: < 5 Years ?: Not : 0 Para: 0 Miscarriage: 0 : 0 Past Surgical History Appendectomy: Yes Other Surgery: Yes Psychiatric History Psychiatric History Hx Psychiatric Treatment: PATIENT WAS LAST ADMITTED TO [facility] FROM 10/20/14 TO 10/30/14 FOR BIPOLAR DISORDER. History of Inpatient Treatment: Yes Guns or firearms in home: No Social History Hx Alcohol Use: No Hx Tobacco Use: Yes (06/06 PPD) Hx Substance Use: Yes (MARIJUANA, LAST USED 09/14/16) Substance Use Type: Marijuana Other Substances Used: DENIES Hx of Substance Use Treatment: No Allergies-Medications (Allergen,Severity, Reaction): Coded Allergies: Latuda (Verified Allergy, Severe, SEIZURE, 08/24/16) Cream (Unverified Allergy, Unknown, 08/24/16) new face soap Geodon (Verified Allergy, Unknown, Seizures, 08/24/16) pt claims she had "two seizures" while taking Geodon. *MDRO Multi-Drug Resistant Organism (Unverified Adverse Reaction, Unknown , 08/24/16) MRSA finger wound in 2004 & 2005. MRSA PCR Screen positive 11/28/14. Reported Meds & Prescriptions Reported Meds & Active Scripts Active Abilifmellisa Maintena ER Inj (Aripiprazole) 400 Mg Susp 400 Mg IM MONTHLY Klonopin (Clonazepam) 0.5 Mg Tab 0.5 Mg PO BID Prozac (Fluoxetine HCl) 20 Mg Cap 20 Mg PO DAILY Clonidine (Clonidine HCl) 0.1 Mg Tab 0.1 Mg PO 1 - 2 HS Lo Loestrin Fe 1/10 (Norethindrone-Ethinyl Estradiol-Fe) 1-10 Mg-Mcg Tab 1 Tab PO DAILY Reported Iron (Ferrous Sulfate) Unknown Strength Tab Unknown Dose PO BIDPC Take after a meal. Ventolin Hfa 18 GM Inh (Albuterol Sulfate) Unknown Strength Aer Unknown Dose INH Q4H PRN Review of Systems ROS Limitations: Clinical Condition Exam Exam Limitations: Clinical Condition Alert: Yes [place]: Person, Place, Date, Situation Mood: Calm Affect: Appropriate, Euthymic Speech: Clear, Logical Eye Contact: Indirect Memory Intact: Immediate, Recent, Remote Insight/Judgement adequate MDM Medical Decision Making Medical Record Reviewed: Yes Assessment/Plan BA lifted and pt. discharged home with follow up to be scheduled with this MD. Orders Complete Blood Count With Diff (09/15/16 00:58) Comprehensive Metabolic Panel (09/15/16 00:58) Ed Urine Pregnancytest Poc (09/15/16 00:58) Psych Screen (09/15/16 00:58) Drug Screen, Random Urine (09/15/16 00:58) Alcohol (Ethanol) (09/15/16 00:58) Salicylates (Aspirin) (09/15/16 00:58) Tylenol (Acetaminophen) (09/15/16 00:58) Chest, Single Ap (09/15/16 01:15) Albuterol-Ipratropium Neb (Duoneb Neb) (09/15/16 01:15) Diet Regular Basic (09/15/16 Breakfast) Albuterol-Ipratropium Neb (Duoneb Neb) (09/15/16 10:00) Diet Regular Basic (09/15/16 Lunch) Results Vital Signs Date Time Temp Pulse Resp B/P Pulse Ox O2 Delivery O2 Flow Rate FiO2 09/15/16 09:03 81 17 156/86 96 Room Air 09/15/16 01:26 97.6 98 18 134/82 99 Laboratory Tests Test 09/15/16 01:05 White Blood Count 7.2 Red Blood Count 4.15 Hemoglobin 11.8 Hematocrit 35.4 Mean Corpuscular Volume 85.3 Mean Corpuscular Hemoglobin 28.5 Mean Corpuscular Hemoglobin 33.4 Concent Red Cell Distribution Width 14.7 Platelet Count 285 Mean Platelet Volume 9.1 Neutrophils (%) (Auto) 57.2 Lymphocytes (%) (Auto) 27.5 Monocytes (%) (Auto) 9.4 Eosinophils (%) (Auto) 5.4 Basophils (%) (Auto) 0.5 Neutrophils # (Auto) 4.1 Lymphocytes # (Auto) 2.0 Monocytes # (Auto) 0.7 Eosinophils # (Auto) 0.4 Basophils # (Auto) 0.0 CBC Comment DIFF FINAL Differential Comment Sodium Level 140 Potassium Level 3.4 Chloride Level 106 Carbon Dioxide Level 25.9 Anion Gap 8 Blood Urea Nitrogen 5 Creatinine 0.64 Estimat Glomerular Filtration 134 Rate Random Glucose 127 Calcium Level 8.7 Total Bilirubin 0.2 Aspartate Amino Transf 21 (AST/SGOT) Alanine Aminotransferase 24 (ALT/SGPT) Alkaline Phosphatase 155 Total Protein 7.7 Albumin 3.4 Salicylates Level 2.0 Urine Opiates Screen NEG Acetaminophen Level LESS THAN 2.0 Urine Barbiturates Screen NEG Urine Amphetamines Screen NEG Urine Benzodiazepines Screen NEG Urine Cocaine Screen NEG Urine Cannabinoids Screen POS Ethyl Alcohol Level LESS THAN 3 Diagnosis Primary Impression: Bipolar affect, depressed Additional Impression: Medical clearance for psychiatric admission Referrals: Dez Steve MD call for appointment Departure Forms: Tests/Procedures Patient Instructions: General Instructions, Bipolar Disorder (ED) Additional Instructions: FOLLOW UP WITH DR. STEVE. Disposition: 01 DISCHARGE HOME Condition: Stable Problem Qualifiers Primary Impression: Bipolar affect, depressed Qualified Code: F31.4 - Bipolar disorder, current episode depressed, severe, without psychotic features Dez Steve MD Sep 15, 2016 12:24
[2016-09-23] MEDS ORDERED: ARIP400I IM (07:34)
[2016-09-23] MEDS ORDERED: CLON0.2T PO ×2 (13:42→13:43)
[2016-10-26] MEDS ORDERED: ARIP400I IM (07:28)
[2016-10-27] MEDS ORDERED: ARIP400I IM ×2 (07:48→10:01)
[2016-10-27] MEDS ORDERED: PROZ20CA11 PO (10:01)
[2016-10-27] MEDS ORDERED: CLON0.2T PO (10:01)
[2016-11-28] MEDS ORDERED: ARIP400I IM (09:08)
[2016-11-28] MEDS ORDERED: FERR324T4 PO (14:23)
[2016-11-28] MEDS ORDERED: NEBULIZER1 MI1 (14:23)
[2016-11-28] MEDS ORDERED: VENTAER INH (14:23)
[2016-11-28] MEDS ORDERED: LO LTAB PO (14:23)
[2016-11-28] MEDS ORDERED: ALBU.5I NEB (14:30)
== END 2016-09-15 14:35 | disposition home or self-care (01) ==
LOC: NEPD 00:43
DX: F31.4 Bipolar disorder, current episode depressed, severe, without psychotic features (principal); F20.9 Schizophrenia, unspecified; E11.9 Type 2 diabetes mellitus without complications; F41.8 Other specified anxiety disorders; J45.909 Unspecified asthma, uncomplicated; F17.210 Nicotine dependence, cigarettes, uncomplicated; F12.10 Cannabis abuse, uncomplicated
CPT/HCPCS: 71010; 80053; 80307; 84703; 85025; 94664; 99284

== ENCOUNTER 2016-10-06 16:43 | Emergency (ER) | payer OTHER ==
[~2016-10-06] VITALS: Ht 167.6 cm; Wt 80.0 kg
[~2016-10-06 16:43] MED LIST changes: +CLON0.2T PO
[2016-10-06 16:49] VITALS: BP 145/84; PULSE 82; RESP 17; TEMP 97.8; O2SAT 99
[2016-10-06] MEDS ORDERED: KETOROLAC TROMETHAMINE 60 MG/2 ML (IM) VIAL IM ONE (18:00)
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
[2016-10-26] MEDS ORDERED: ARIP400I IM (07:28)
[2016-10-27] MEDS ORDERED: ARIP400I IM ×2 (07:48→10:01)
[2016-10-27] MEDS ORDERED: CLON0.2T PO (10:01)
[2016-10-27] MEDS ORDERED: PROZ20CA11 PO (10:01)
[2016-11-28] MEDS ORDERED: ARIP400I IM (09:08)
[2016-11-28] MEDS ORDERED: LO LTAB PO (14:23)
[2016-11-28] MEDS ORDERED: FERR324T4 PO (14:23)
[2016-11-28] MEDS ORDERED: NEBULIZER1 MI1 (14:23)
[2016-11-28] MEDS ORDERED: VENTAER INH (14:23)
[2016-11-28] MEDS ORDERED: ALBU.5I NEB (14:30)
== END 2016-10-06 19:31 | disposition home or self-care (01) ==
LOC: NEPK 16:43
DX: M25.561 Pain in right knee (principal)
CPT/HCPCS: 73564; 96372; 99284; E0113; J1885

== ENCOUNTER 2016-12-03 20:32 | Emergency (ER) | payer OTHER ==
[~2016-12-03] VITALS: Ht 160 cm; Wt 82.0 kg
[~2016-12-03 20:32] MED LIST changes: +ALBU.5I NEB; -CLON0.1T PO; -FERR1TAB36 PO; +FERR324T4 PO; +NEBULIZER1 MI1
[2016-12-03 20:34] VITALS: BP 154/89; PULSE 75; RESP 16; TEMP 98.7; O2SAT 100
[2016-12-03] MEDS ORDERED: IBUPROFEN 600 MG TAB PO ONE (21:45)
--- NOTE | 2016-12-03 21:46 | PD ---
HPI Chief Complaint: Injury Time Seen by Provider: 21:44 Travel History International Travel<30 days: No Contact w/Intl Traveler<30days: No Traveled to known affect area: No History of Present Illness HPI 26-year-old black female presents emergency Department accompanied by her pantry steward/stewardess for evaluation of right knee pain. The patient allegedly tripped and fell at home onto her right knee. She is complaining of pain. Mild to moderate in nature. Worse with weightbearing. No alleviating factors. No injury to her head, neck or back. PFSH Past Medical History Asthma: Yes Bipolar Disorder: Yes Anxiety: Yes Depression: Yes Cancer: No Cardiovascular Problems: No Cerebrovascular Accident: Yes Diabetes: Yes Diminished Hearing: No Endocrine: No Gastrointestinal Disorders: No Headaches: No Implanted Vascular Access Dvce: No Musculoskeletal: No Neurologic: Yes Psychiatric: Yes Respiratory: Yes (asthma) Seizures: Yes : 0 Para: 0 Miscarriage: 0 : 0 Past Surgical History Appendectomy: Yes Other Surgery: Yes Social History Alcohol Use: No Tobacco Use: Yes (1/2 PPD) Substance Use: Yes (MARIJUANA, LAST USED 09/14/16) Allergies-Medications (Allergen,Severity, Reaction): Coded Allergies: Latuda (Verified Allergy, Severe, SEIZURE, 12/03/16) Cream (Unverified Allergy, Unknown, 12/03/16) new face soap Geodon (Verified Allergy, Unknown, Seizures, 12/03/16) pt claims she had "two seizures" while taking Geodon. *MDRO Multi-Drug Resistant Organism (Unverified Adverse Reaction, Unknown , 12/03/16) MRSA finger wound in 2004 & 2005. MRSA PCR Screen positive 11/28/14. Reported Meds & Prescriptions Reported Meds & Active Scripts Active Albuterol Neb (Albuterol Sulfate) 2.5 Mg/0.5 Ml Neb 2.5 Mg NEB Q6HR NEB PRN The Albuterol Sulfate Inhalation Solution is concentrated and must be diluted. Nebulizer 1 Mis Mis 1 Ea .ROUTE DIRECTED Ferrous Sulfate DR (Ferrous Sulfate) 324 Mg Tabdr 324 Mg PO DAILY Ventolin Hfa 18 GM Inh (Albuterol Sulfate) 90 Mcg/Act Aer 1 Puff INH Q4H PRN Lo Loestrin Fe 1/10 (Norethindrone-Ethinyl Estradiol-Fe) 1-10 Mg-Mcg Tab 1 Tab PO DAILY Clonidine (Clonidine HCl) 0.2 Mg Tab 0.2 Mg PO HS Aline Maintena ER Inj (Aripiprazole) 400 Mg Susp 400 Mg IM MONTHLY Prozac (Fluoxetine HCl) 20 Mg Cap 20 Mg PO DAILY Klonopin (Clonazepam) 0.5 Mg Tab 0.5 Mg PO BID Reported Ventolin Hfa 18 GM Inh (Albuterol Sulfate) Unknown Strength Aer Unknown Dose INH Q4H PRN Review of Systems Except as stated in HPI: all other systems reviewed are Neg Physical Exam Narrative GENERAL: This is a well-nourished, well-developed patient, in no apparent distress. SKIN: No rashes, ecchymoses or lesions. Warm and dry. HEAD: Atraumatic. Normocephalic. EYES: PERRL, EOMI, no discharge or injection. No scleral icterus. EARS: Clear NOSE: Nasal turbinates appear normal. THROAT: Mucosa pink and moist. Airway patent. NECK: Trachea midline. supple, moves head freely. LUNGS: Clear to auscultation. CV: Regular in rhythm. ABDOMEN: Soft nontender. EXT: No clubbing cyanosis or edema. Examination of the right knee reveals soft tissue tenderness over the patella. Patient has full range of motion. No laxity. No joint effusion. The skin is intact. No pain in the hip, ankle or foot. The patient is able to ambulate at bedside with an antalgic gait. Data Data Last Documented VS Vital Signs Date Time Temp Pulse Resp B/P Pulse Ox O2 Delivery O2 Flow Rate FiO2 12/03/16 20:34 98.7 75 16 154/89 100 Room Air MDM Medical Decision Making Medical Screen Exam Complete: Yes Emergency Medical Condition: Yes Medical Record Reviewed: Yes Interpretation(s) Right knee: Negative for acute fracture Differential Diagnosis MDM: High Differential diagnoses: Fracture, sprain, strain, dislocation, contusion, neurovascular injury Narrative Course X-rays negative for bony injury. Patient's given Motrin 600 mg by mouth. This is right knee contusion Diagnosis Primary Impression: right knee contusion Patient Instructions: General Instructions Additional Instructions: Rest. Elevation. Ice packs for the next 3 days. Limits weight-bearing as tolerated. Medications as directed Follow-up with an orthopedist or your doctor in one week. Return to the ER if any problems Med/Other Pt SpecificInfo: Prescription(s) given Disposition: 01 DISCHARGE HOME Condition: Antonio Myers Dec 03, 2016 21:46
[2016-12-03] MEDS ORDERED: IBUP800T23 PO (21:49)
--- NOTE | 2016-12-03 22:12 | RADRPT ---
EXAM DATE/TIME: 12/03/2016 21:42 [facility] COMPARISON: No previous studies available for comparison. INDICATIONS : Twisted right knee, pain and swelling MEDICAL HISTORY : None. SURGICAL HISTORY : None. ENCOUNTER: Initial ACUITY: 1 day PAIN SCORE: 7/10 LOCATION: Right knee FINDINGS: Two view examination of the right knee demonstrates no evidence of fracture or dislocation. Bony min eralization is normal. The suprapatellar soft tissues have a normal configuration. CONCLUSION: Unremarkable limited examination of the right knee. Zheng Joseph MD on December 03, 2016 at 22:09 Board Certified Radiologist. This report was verified electronically.
[2016-12-12] MEDS ORDERED: ACCUMIS25 (15:15)
[2016-12-12] MEDS ORDERED: ALCO1PAD (15:15)
[2016-12-12] MEDS ORDERED: EZ SMIS (15:15)
[2016-12-12] MEDS ORDERED: BLOOD GLUCOSE T1 TES (15:15)
== END 2016-12-03 22:59 | disposition home or self-care (01) ==
LOC: NEPD 20:32
DX: S80.01XA Contusion of right knee, initial encounter (principal); R56.9 Unspecified convulsions; F17.210 Nicotine dependence, cigarettes, uncomplicated; F12.90 Cannabis use, unspecified, uncomplicated; W01.0XXA Fall on same level from slipping, tripping and stumbling without subsequent striking against object, initial encounter; Y92.009 Unspecified place in unspecified non-institutional (private) residence as the place of occurrence of the external cause
CPT/HCPCS: 73560; 99283

== ENCOUNTER 2016-12-26 17:38 | Inpatient (IN) | payer OTHER ==
[~2016-12-26] VITALS: Ht 154.9 cm; Wt 82.7 kg
[~2016-12-26 17:38] MED LIST changes: +ACCUMIS25; +ALCO1PAD; +BLOOD GLUCOSE T1 TES; +EZ SMIS; +IBUP800T23 PO
--- NOTE | 2016-12-26 18:26 | PD ---
HPI Chief Complaint: Psychiatric Symptoms Time Seen by Provider: 18:15 Travel History International Travel<30 days: No Contact w/Intl Traveler<30days: No Traveled to known affect area: No History of Present Illness HPI 26-year-old female presents under Ocampo act initiated by mental health counselor. According to her paperwork the patient has been having feelings appointment to kill herself. Specifically she has had thoughts of taking her shoe strings and strangling herself. Patient reports that she didn't feelings way for "a while." She denies any drug or alcohol use, homicidal ideation, auditory or visual hallucination. She has no medical complaints at this time. PFSH Past Medical History Asthma: Yes Bipolar Disorder: Yes Anxiety: Yes Depression: Yes Cancer: No Cardiovascular Problems: No Cerebrovascular Accident: Yes (TIA) Diabetes: Yes Diminished Hearing: No Endocrine: No Gastrointestinal Disorders: No Headaches: No Implanted Vascular Access Dvce: No Musculoskeletal: No Neurologic: Yes Psychiatric: Yes Respiratory: Yes Seizures: Yes ?: Not LMP: 11/26/16 : 0 Para: 0 Miscarriage: 0 : 0 Past Surgical History Appendectomy: Yes Other Surgery: Yes Social History Alcohol Use: No Tobacco Use: No Substance Use: Yes (MARIJUANA, LAST USED 09/14/16) Allergies-Medications (Allergen,Severity, Reaction): Coded Allergies: Latuda (Verified Allergy, Severe, SEIZURE, 12/26/16) Cream (Unverified Allergy, Unknown, 12/26/16) new face soap Geodon (Verified Allergy, Unknown, Seizures, 12/26/16) pt claims she had "two seizures" while taking Geodon. *MDRO Multi-Drug Resistant Organism (Unverified Adverse Reaction, Unknown , 12/26/16) MRSA finger wound in 2004 & 2005. MRSA PCR Screen positive 11/28/14. Reported Meds & Prescriptions Reported Meds & Active Scripts Active Ez Smart Diabetes Monitor (Device) 1 Mis Mis 1 Kit .ROUTE DIRECTED Blood Glucose Test Strips Strips Strip 1 Ea .ROUTE DIRECTED Alcohol Prep Pads (Alcohol Swabs) 70 % Pad 1 Pad .ROUTE DIRECTED Accu-Chek Fastclix Lancet 1 Mis Mis 1 Ea .ROUTE DIRECTED Ibuprofen 800 Mg Tab 800 Mg PO Q8H PRN Albuterol Neb (Albuterol Sulfate) 2.5 Mg/0.5 Ml Neb 2.5 Mg NEB Q6HR NEB PRN The Albuterol Sulfate Inhalation Solution is concentrated and must be diluted. Nebulizer 1 Mis Mis 1 Ea .ROUTE DIRECTED Ferrous Sulfate DR (Ferrous Sulfate) 324 Mg Tabdr 324 Mg PO DAILY Ventolin Hfa 18 GM Inh (Albuterol Sulfate) 90 Mcg/Act Aer 1 Puff INH Q4H PRN Lo Loestrin Fe 1/10 (Norethindrone-Ethinyl Estradiol-Fe) 1-10 Mg-Mcg Tab 1 Tab PO DAILY Clonidine (Clonidine HCl) 0.2 Mg Tab 0.2 Mg PO HS Abilify Maintena ER Inj (Aripiprazole) 400 Mg Susp 400 Mg IM MONTHLY Prozac (Fluoxetine HCl) 20 Mg Cap 20 Mg PO DAILY Klonopin (Clonazepam) 0.5 Mg Tab 0.5 Mg PO BID Review of Systems Except as stated in HPI: all other systems reviewed are Neg Physical Exam Narrative GENERAL: Well-developed well-nourished female in no acute distress resting comfortably SKIN: Warm and dry. HEAD: Atraumatic. Normocephalic. EYES: Pupils equal and round. No scleral icterus. No injection or drainage. ENT: No nasal bleeding or discharge. Mucous membranes pink and moist. NECK: Trachea midline. No JVD. CARDIOVASCULAR: Regular rate and rhythm. No murmur appreciated. RESPIRATORY: No accessory muscle use. Clear to auscultation. Breath sounds equal bilaterally. GASTROINTESTINAL: Abdomen soft, non-tender, nondistended. Hepatic and splenic margins not palpable. MUSCULOSKELETAL: No obvious deformities. No clubbing. No cyanosis. No edema. NEUROLOGICAL: Awake and alert. No obvious cranial nerve deficits. Motor grossly within normal limits. Normal speech. PSYCHIATRIC: Flat affect; insight and judgment limited Data Data Last Documented VS Vital Signs Date Time Temp Pulse Resp B/P Pulse Ox O2 Delivery O2 Flow Rate FiO2 12/26/16 18:30 98.4 80 14 123/76 98 Room Air Orders Complete Blood Count With Diff (12/26/16 18:24) Comprehensive Metabolic Panel (12/26/16 18:24) Psych Screen (12/26/16 18:24) Drug Screen, Random Urine (12/26/16 18:24) Alcohol (Ethanol) (12/26/16 18:24) Salicylates (Aspirin) (12/26/16 18:24) Tylenol (Acetaminophen) (12/26/16 18:24) Labs Laboratory Tests Test 12/26/16 19:20 White Blood Count 6.5 TH/MM3 Red Blood Count 4.28 MIL/MM3 Hemoglobin 12.0 GM/DL Hematocrit 36.3 % Mean Corpuscular Volume 84.8 FL Mean Corpuscular Hemoglobin 28.0 PG Mean Corpuscular Hemoglobin 33.0 % Concent Red Cell Distribution Width 14.8 % Platelet Count 320 TH/MM3 Mean Platelet Volume 8.5 FL Neutrophils (%) (Auto) 65.5 % Lymphocytes (%) (Auto) 22.7 % Monocytes (%) (Auto) 8.6 % Eosinophils (%) (Auto) 2.6 % Basophils (%) (Auto) 0.6 % Neutrophils # (Auto) 4.3 TH/MM3 Lymphocytes # (Auto) 1.5 TH/MM3 Monocytes # (Auto) 0.6 TH/MM3 Eosinophils # (Auto) 0.2 TH/MM3 Basophils # (Auto) 0.0 TH/MM3 CBC Comment DIFF FINAL Differential Comment Sodium Level 135 MEQ/L Potassium Level 3.9 MEQ/L Chloride Level 105 MEQ/L Carbon Dioxide Level 23.3 MEQ/L Anion Gap 7 MEQ/L Blood Urea Nitrogen 13 MG/DL Creatinine 0.56 MG/DL Estimat Glomerular Filtration 156 ML/MIN Rate Random Glucose 93 MG/DL Calcium Level 9.3 MG/DL Total Bilirubin 0.2 MG/DL Aspartate Amino Transf 18 U/L (AST/SGOT) Alanine Aminotransferase 23 U/L (ALT/SGPT) Alkaline Phosphatase 155 U/L Total Protein 8.3 GM/DL Albumin 3.3 GM/DL Salicylates Level 1.8 MG/DL Urine Opiates Screen NEG Acetaminophen Level LESS THAN 2.0 MCG/ML Urine Barbiturates Screen NEG Urine Amphetamines Screen NEG Urine Benzodiazepines Screen NEG Urine Cocaine Screen NEG Urine Cannabinoids Screen NEG Ethyl Alcohol Level LESS THAN 3 MG/DL MDM Medical Decision Making Medical Screen Exam Complete: Yes Emergency Medical Condition: Yes Medical Record Reviewed: Yes Differential Diagnosis Bipolar disorder, medication noncompliance, acute psychosis, substance induced mood disorder, adjustment reaction, major depressive disorder Narrative Course 26-year-old female with history of bipolar disorder presents under Ocampo act initiated by her mental health counselor for evaluation of suicidal ideation. She has no medical complaints at this time. Mental health screening discussed with the patient. Psychiatric screen ordered. Lab work has been reviewed. The patient is medically clear for psychiatric disposition. Diagnosis Primary Impression: Bipolar affect, depressed Qualified Code: F31.30 - Bipolar affective disorder, current episode depressed , current episode severity unspecified Clint Henderson Dec 26, 2016 18:26
[2016-12-26 18:30] VITALS: BP 123/76; PULSE 80; RESP 14; TEMP 98.4; O2SAT 98
[2016-12-26 19:58] LABS: AUTOMATED NEUTROPHIL # 4.3 TH/MM3 (1.8-7.7); BASOPHIL % 0.6 % (0.0-2.0); EOSINOPHIL # 0.2 TH/MM3 (0-0.4); EOSINOPHIL % 2.6 % (0.0-4.0); HEMATOCRIT 36.3 % (35.0-46.0); HEMO FLAGS DIFF FINAL; LYMPH % 22.7 % (9.0-44.0); LYMPHOCYTE # 1.5 TH/MM3 (1.0-4.8); MEAN CELL VOLUME 84.8 FL (80.0-100.0); MONO % 8.6 % (0.0-8.0); NEUT % 65.5 % (16.0-70.0); PLATELET COUNT 320 TH/MM3 (150-450); RED BLOOD COUNT 4.28 MIL/MM3 (4.00-5.30); RED CELL DISTRIBUTION WIDTH 14.8 % (11.6-17.2); WHITE BLOOD COUNT 6.5 TH/MM3 (4.0-11.0)
[2016-12-26 20:06] LABS: AMPHETAMINE, URINE NEG (NEG); BARBITURATES, URINE NEG (NEG); COCAINE, URINE NEG (NEG)
[2016-12-26 20:20] LABS: ANION GAP 7 MEQ/L (5-15); AST (GOT) 18 U/L (15-37); BICARBONATE 23.3 MEQ/L (21.0-32.0); BLOOD UREA NITROGEN 13 MG/DL (7-18); CHLORIDE 105 MEQ/L (98-107); GLOMERULAR FILTRATION RATE 156 ML/MIN (>89); POTASSIUM 3.9 MEQ/L (3.5-5.1); SODIUM (NA) 135 MEQ/L (136-145)
[2016-12-26 20:23] LABS: ALKALINE PHOSPHATASE 155 U/L (45-117); ALT (GPT) 23 U/L (10-53); TOTAL BILIRUBIN ADULT 0.2 MG/DL (0.2-1.0)
[2016-12-26 20:26] LABS: ACETAMINOPHEN LESS THAN 2.0 MCG/ML (10.0-30.0)
--- NOTE | 2016-12-27 08:19 | HHI.HP ---
Provisional Diagnosis Admission Date 12/27/2016 Prim I. 1. Schizophrenia, unspecified type Rule out bipolar disorder or schizoaffective disorder Prim II. 1. Borderline intellectual functioning Prim V. GAF 30 presently Certification of Person's Competence To Provide Express and Informed Consent I have personally examined Olena Sheehan , a person being served at [facility] on, Dec 27, 2016 08:19. Express and informed consent means consent voluntarily given in writing, by a competent person, after sufficient explanation and disclosure of the subject matter involved to enable the person to make a knowing and willful decision without any element of force, fraud, deceit, duress, or other form of constraint or coercion. This person is 18 years of age or older, is not now known to be incompetent to consent to treatment with a guardian advocate, and does not have a health care surrogate or proxy currently making medical treatment decisions. I have found this person to be one of the following: [] Competent to provide express and informed consent, as defined above, for voluntary admission to this facility and is competent to provide express and informed consent for treatment. He/she has the consistent capacity to make well reasoned, willful, and knowing decisions concerning his or her medical or mental health treatment. The person fully and consistently understands the purpose of the admission for examination/placement and is fully capable of personally exercising all rights [place] [] Incompetent to provide express and informed consent to voluntary admission, and this is incompetent to provide express and informed consent to treatment. The person must be transferred to involuntary status and a petition for a guardian advocate filed with the Circuit Court. [x] Refusing to provide express and informed consent to voluntary admission but is competent to provide express and informed consent for treatment. The person must be discharged or transferred to involuntary status. Form shall be completed within 24 hours of a person's arrival at the receiving facility and filed in the clinical record of each person: 1. Admitted on a voluntary basis 2. Permitted to provide express and informed consent to his/her own treatment 3. Allowed to transfer from involuntary to voluntary status 4. Prior to permitting a person to consent to his or her own treatment after having been previously found incompetent to consent to treatment. History of Present Illness Capacity: Has Capacity HPI Ms. Sheehan is a 26-year-old female with a self-reported history of bipolar disorder and a chart diagnosis of schizophrenia, followed outpatient by Dr. Kwon (most recently seen by Dr. Lr), who presents under a Ocampo act by her psychotherapist alleging suicidal threats. Reviewing the electronic medical record, I note that the patient saw Dr. Lr in the office on 12/23 for her Abilify Maintena injection. Patient was most recently psychiatrically admitted here under Dr. Sparks in 2014. Patient seen and examined. Chart reviewed. Case discussed with nurse. On my examination today, the patient continues to endorse suicidal ideation. 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 She says that she wants to strangle herself with her shoelaces. No urge to hurt self in hospital setting. She says that she has been feeling increasingly depressed for the last several weeks without clear trigger. She endorses hopelessness and worthlessness. Sleep and appetite are fair. She does describe some intermittent auditory hallucinations "telling me to do bad things" but does not describe any presently. No delusions. No hypomanic/manic symptoms. No HI. No side effects from meds. Remainder of the psychiatric ROS is negative. Past psychiatric history: Diagnoses as above. Follows outpatient with Dr. Kwon. Last admission was reportedly here under Dr. Sparks. Endorses a history of suicide attempts by trying to drown herself in 2015. Family history: Patient denies family history of mental illness. Chemical dependency history: Patient denies any abuse of drugs or alcohol. Social history: The patient reports that she lives with a roommate. She is single with no children. High school educated. On disability. Denies legal problems. Denies access to guns or firearms. Review of Systems ROS Limitations: Poor Historian Except as stated in HPI: all other systems reviewed are Neg Past Psych History Psychological trauma history none reported Violence risk - others (6 mos) lower risk. no hi. Violence risk - self (6 mos) elevated. +SI with plan. possible CAH. Past Family Social History Coded Allergies: Latuda (Verified Allergy, Severe, SEIZURE, 12/26/16) Cream (Unverified Allergy, Unknown, 12/26/16) new face soap Geodon (Verified Allergy, Unknown, Seizures, 12/26/16) pt claims she had "two seizures" while taking Geodon. *MDRO Multi-Drug Resistant Organism (Unverified Adverse Reaction, Unknown , 12/26/16) MRSA finger wound in 2004 & 2005. MRSA PCR Screen positive 11/28/14. Past Medical History See emr Active Scripts Ez Smart Diabetes Monitor 1 Mis Mis #1 KIT .ROUTE DIRECTED Ref 0 Prov:Shine Cameron MD 12/12/16 Blood Glucose Test Strips Strips Strip #1 EA .ROUTE DIRECTED Ref 3 Prov:Shine Cameron MD 12/12/16 Alcohol Swabs (Alcohol Prep Pads)70 % Pad #1 PAD .ROUTE DIRECTED Ref 3 Prov:Shine Cameron MD R1 12/12/16 Accu-Chek Fastclix Lancet 1 Mis Mis #1 EA .ROUTE DIRECTED Ref 3 Prov:Shine Cameron MD R1 12/12/16 Ibuprofen 800 Mg [id number] Mg PO Q8H PRN (Pain/Inflammation) #21 TAB Prov:Genesis Solares MD 12/03/16 Albuterol Neb 2.5 Mg/0.5 Ml Neb2.5 Mg NEB Q6HR NEB PRN (SOB/WHEEZING) #1 BOX Ref 3 The Albuterol Sulfate Inhalation Solution is concentrated and must be diluted. Prov:Shine Cameron MD 11/28/16 Nebulizer 1 Mis Mis #1 EA .ROUTE DIRECTED Ref 0 Prov:Shine Cameron MD R1 11/28/[address] 324 Mg [id number] Mg PO DAILY #60 TAB Ref 3 Prov:Shine Cameron MD R1 11/28/16 Albuterol 18 GM Inh (Ventolin Hfa 18 GM Inh)90 Mcg/Act Aer1 Puff INH Q4H PRN ( SHORTNESS OF BREATH) #1 INHALER Ref 3 Prov:Shine Cameron MD 11/28/16 Norethindrone-Ethinyl Estradiol-Fe (Lo Loestrin Fe 06/14)1-10 Mg-Mcg Tab1 Tab PO DAILY #30 PACK Ref 3 Prov:Shine Cameron MD 11/28/16 Clonidine 0.2 Mg Tab0.2 Mg PO HS #30 TAB Ref 0 Prov:Jamaal Kwon MD 10/27/16 Aripiprazole ER Inj (Abilify Maintena ER Inj)400 Mg [id number] Mg IM MONTHLY #1 INJECTION Ref 10 Prov:Jamaal Kwon MD 10/27/16 Clonazepam (Klonopin)0.5 Mg Tab0.5 Mg PO BID #60 TAB Ref 3 Prov:Jamaal Kwon MD 08/24/16 Discontinued Scripts Fluoxetine (Prozac)20 Mg Cap20 Mg PO DAILY #30 CAP Ref 3 Prov:Jamaal Kwon MD 10/27/16 Patient's Strengths (min. 2) In monitored setting. Verbally fluent. Physical Exam PE completed by ED provider. On my exam, patient in no acute physical distress. No abnormal motor movements noted. Labs and vitals reviewed: Vital Signs Vital Signs Date Time Temp Pulse Resp B/P Pulse Ox O2 Delivery O2 Flow Rate FiO2 12/26/16 18:30 98.4 80 14 123/76 98 Room Air Lab Results Laboratory Tests Test 12/26/16 19:20 White Blood Count 6.5 TH/MM3 Red Blood Count 4.28 MIL/MM3 Hemoglobin 12.0 GM/DL Hematocrit 36.3 % Mean Corpuscular Volume 84.8 FL Mean Corpuscular Hemoglobin 28.0 PG Mean Corpuscular Hemoglobin 33.0 % Concent Red Cell Distribution Width 14.8 % Platelet Count 320 TH/MM3 Mean Platelet Volume 8.5 FL Neutrophils (%) (Auto) 65.5 % Lymphocytes (%) (Auto) 22.7 % Monocytes (%) (Auto) 8.6 % Eosinophils (%) (Auto) 2.6 % Basophils (%) (Auto) 0.6 % Neutrophils # (Auto) 4.3 TH/MM3 Lymphocytes # (Auto) 1.5 TH/MM3 Monocytes # (Auto) 0.6 TH/MM3 Eosinophils # (Auto) 0.2 TH/MM3 Basophils # (Auto) 0.0 TH/MM3 CBC Comment DIFF FINAL Differential Comment Sodium Level 135 MEQ/L Potassium Level 3.9 MEQ/L Chloride Level 105 MEQ/L Carbon Dioxide Level 23.3 MEQ/L Anion Gap 7 MEQ/L Blood Urea Nitrogen 13 MG/DL Creatinine 0.56 MG/DL Estimat Glomerular Filtration 156 ML/MIN Rate Random Glucose 93 MG/DL Calcium Level 9.3 MG/DL Total Bilirubin 0.2 MG/DL Aspartate Amino Transf 18 U/L (AST/SGOT) Alanine Aminotransferase 23 U/L (ALT/SGPT) Alkaline Phosphatase 155 U/L Total Protein 8.3 GM/DL Albumin 3.3 GM/DL Salicylates Level 1.8 MG/DL Urine Opiates Screen NEG Acetaminophen Level LESS THAN 2.0 MCG/ML Urine Barbiturates Screen NEG Urine Amphetamines Screen NEG Urine Benzodiazepines Screen NEG Urine Cocaine Screen NEG Urine Cannabinoids Screen NEG Ethyl Alcohol Level LESS THAN 3 MG/DL Mental Status Examination Patient is in hospital gown. She is somewhat disheveled but maintaining basic hygiene. She is awake and alert and oriented to person and hospital at least. No evidence of delirium. No motor abnormalities noted. Speech somewhat slow with increased speech latency. Language and fund of knowledge somewhat reduced. Focus and concentration somewhat scattered. Memory grossly intact on clinical exam. Mood depressed and affect restricted. Thought process linear. No loosening of associations. No delusions. Intermittent command auditory hallucinations as noted above. No other hallucinations. Endorses suicidal ideation with plan as detailed above. No urge to hurt self on inpatient unit. No homicidal ideation. Insight and judgment are poor. Assessment & Plan Problem List: (1) Schizophrenia ICD Code: F20.9 (2) Borderline intellectual functioning ICD Code: R41.83 Assessment & Plan This is a 26-year-old female with psychiatric history as detailed above who presents under Ocampo act. On my examination today, the patient endorses ongoing low mood and suicidal ideation with plan to strangle herself with her shoelaces. She is somewhat resistant to the idea of psychiatric hospitalization. I note that she has previously done well with the Prozac that is a component of her regimen and given her dysphoria I will titrate this agent to try to improve her mood. Patient requires psychiatric hospitalization at this time for safety, observation and stabilization. Admit inpatient. Involuntary status. I have completed first opinion. Consult for second opinion. Patient retains capacity to consent for medications. Titrate Prozac to 40 mg daily for low mood. Patient recently received long- acting injectable Abilify injection. Continue clonidine and Klonopin as ordered. Ativan as needed for breakthrough anxiety, Cogentin as needed for EPS , Benadryl as needed for sleep. Vitals every shift. Counselor to see. Disposition planning. Estimated length of stay: 5-7 days. Discharge Planning Pending psychiatric stabilization. Request HC Surrog/Guard Advoc?: No Problem Qualifiers (1) Schizophrenia: Qualified Code: F20.9 - Schizophrenia, unspecified type Steve Ramirez MD Dec 27, 2016 08:19
[2016-12-27] MEDS ORDERED: BENZTROPINE MESYLATE 1 MG TAB PO PRN (09:30)
[2016-12-27] MEDS ORDERED: LORazepam 1 MG TAB PO PRN (09:30)
[2016-12-27] MEDS ORDERED: ALBUTEROL SULFATE 90 MCG/ACT HFA 18 GM INHALER INH PRN (09:30)
[2016-12-27] MEDS ORDERED: BENZTROPINE MESYLATE 2 MG/2 ML VIAL IM PRN (09:30)
[2016-12-27] MEDS ORDERED: LORazepam 2 MG/ML VIAL IM PRN (09:30)
[2016-12-27] MEDS ORDERED: ALUMINUM/MAGNESIUM/SIMETH 30 ML CUP PO PRN (09:30)
[2016-12-27] MEDS ORDERED: MAGNESIUM HYDROXIDE SUSP 30 ML CUP PO PRN (09:30)
[2016-12-27] MEDS ORDERED: ACETAMINOPHEN 325 MG TAB PO PRN (09:30)
[2016-12-27] MEDS ORDERED: diphenhydrAMINE HCL 50 MG CAP PO PRN (09:30)
[2016-12-27 10:09] VITALS: BP 129/82; PULSE 89; RESP 16; TEMP 97.7; O2SAT 99
--- NOTE | 2016-12-27 14:49 | PD.PSY.CON ---
Provisional Diagnosis Admission Date Dec 27, 2016 at 08:20 [place] I. 1. Schizophrenia, unspecified type Rule out bipolar disorder or schizoaffective disorder [place] II. 1. Borderline intellectual functioning [place] V. GAF 30 presently History of Present Illness Service Psychiatry Consult Requested By Dr. ramirez Reason for Consult Second opinion [place] act Primary Care Physician No Primary Care Physician HPI Ms. Sheehan is a 26-year-old female with a self-reported history of bipolar disorder and a chart diagnosis of schizophrenia, followed outpatient by Dr. Kwon (most recently seen by Dr. Lr), who presents under a [place]o act by her psychotherapist alleging suicidal threats. Reviewing the electronic medical record, I note that the patient saw Dr. Lr in the office on 12/23 for her Abilify Maintena injection. Patient was most recently psychiatrically admitted here under Dr. Sparks in 2014. Patient seen and examined. Chart reviewed. Case discussed with nurse. On my examination today, the patient continues to endorse suicidal ideation. 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 She says that she wants to strangle herself with her shoelaces. No urge to hurt self in hospital setting. She says that she has been feeling increasingly depressed for the last several weeks without clear trigger. She endorses hopelessness and worthlessness. Sleep and appetite are fair. She does describe some intermittent auditory hallucinations "telling me to do bad things" but does not describe any presently. No delusions. No hypomanic/manic symptoms. No HI. No side effects from meds. Remainder of the psychiatric ROS is negative. Past psychiatric history: Diagnoses as above. Follows outpatient with Dr. Kwon. Last admission was reportedly here under Dr. Sparks. Endorses a history of suicide attempts by trying to drown herself in 2016. Family history: Patient denies family history of mental illness. Chemical dependency history: Patient denies any abuse of drugs or alcohol. Social history: The patient reports that she lives with a roommate. She is single with no children. High school educated. On disability. Denies legal problems. Denies access to guns or firearms. 12/27/16 Above note dictated by Dr. ramirez reviewed and agreed with. Patient is a 26- year-old Afro-[place]ian female admitted to Dr. Ramirez service under the [facility] act. Patient seen by me along with RN patient continues markedly depressed with significant thought blocking acknowledging auditory hallucinations of a somewhat command nature. She still retains some suicidal ideation also Dr. Ramirez @first opinion petition supporting [facility] act. I agree. Patient meets criteria for involuntary psychiatric hospitalization under the Ocampo act thus will cosign second opinion petition supporting [facility] act Past Family Social History Coded Allergies: Latuda (Verified Allergy, Severe, SEIZURE, 12/26/16) Cream (Unverified Allergy, Unknown, 12/26/16) new face soap Geodon (Verified Allergy, Unknown, Seizures, 12/26/16) pt claims she had "two seizures" while taking Geodon. *MDRO Multi-Drug Resistant Organism (Unverified Adverse Reaction, Unknown , 12/26/16) MRSA finger wound in 2004 & 2005. MRSA PCR Screen positive 11/28/14. Active Scripts Ez Smart Diabetes Monitor 1 [facility] #1 KIT .ROUTE DIRECTED Ref 0 Prov:Shine Cameron MD 12/12/16 Blood Glucose Test Strips Strips Strip #1 EA .ROUTE DIRECTED Ref 3 Prov:Shine Cameron MD 12/12/16 Alcohol Swabs (Alcohol Prep Pads)70 % Pad #1 PAD .ROUTE DIRECTED Ref 3 Prov:Shine Cameron MD 12/12/16 Accu-Chek Fastclix Lancet 1 [facility] #1 EA .ROUTE DIRECTED Ref 3 Prov:Shine Cameron MD 12/12/16 Ibuprofen 800 Mg [id number] Mg PO Q8H PRN (Pain/Inflammation) #21 TAB Prov:Genesis Solares MD 12/03/16 Albuterol Neb 2.5 Mg/0.5 Ml Neb2.5 Mg NEB Q6HR NEB PRN (SOB/WHEEZING) #1 BOX Ref 3 The Albuterol Sulfate Inhalation Solution is concentrated and must be diluted. Prov:Shine Cameron MD 11/28/[address] [facility] #1 EA .ROUTE DIRECTED Ref 0 Prov:Shine Cameron MD 11/28/[address] 324 Mg [id number] Mg PO DAILY #60 TAB Ref 3 Prov:Shine Cameron MD 11/28/16 Albuterol 18 GM Inh (Ventolin Hfa 18 GM Inh)90 Mcg/Act Aer1 Puff INH Q4H PRN ( SHORTNESS OF BREATH) #1 INHALER Ref 3 Prov:Shine Cameron MD R1 11/28/16 Norethindrone-Ethinyl Estradiol-Fe (Lo Loestrin Fe 06/14)1-10 Mg-Mcg Tab1 Tab PO DAILY #30 PACK Ref 3 Prov:Shine Cameron MD R1 11/28/16 Clonidine 0.2 Mg Tab0.2 Mg PO HS #30 TAB Ref 0 Prov:Jamaal Kwon MD 10/27/16 Aripiprazole ER Inj (Abilify Maintena ER Inj)400 Mg [id number] Mg IM MONTHLY #1 INJECTION Ref 10 Prov:Jamaal Kwon MD 10/27/16 Clonazepam (Klonopin)0.5 Mg Tab0.5 Mg PO BID #60 TAB Ref 3 Prov:Jamaal Kwon MD 08/24/16 Discontinued Scripts Fluoxetine (Prozac)20 Mg Cap20 Mg PO DAILY #30 CAP Ref 3 Prov:Jamaal Kwon MD 10/27/16 Current Medications Medications (Trade) Dose Ordered Sig/Ramin Route Start Time Stop Time Status Last Admin (Ativan) 1 mg Q6H PRN PO 12/27/16 09:30 (Ativan Inj) 1 mg Q6H PRN IM 12/27/16 09:30 (Benadryl) 50 mg HS PRN PO 12/27/16 09:30 (Tylenol) 650 mg Q4H PRN PO 12/27/16 09:30 (Milk Of Magnesia Liq) 30 ml DAILY PRN PO 12/27/16 09:30 (Mag-Al Plus Susp Liq) 30 ml Q6H PRN PO 12/27/16 09:30 (Habitrol 21 Mg Patch.24 Hr) 1 patch DAILY T-DERMAL 12/28/16 09:00 (Cogentin) 1 mg Q12H PRN PO 12/27/16 09:30 (Cogentin Inj) 1 mg Q12H PRN IM 12/27/16 09:30 Miscellaneous Information 1 DAILY T-DERMAL 12/29/16 09:00 (Ferrous Sulfate) 325 mg DAILY PO 12/28/16 09:00 Patient Own Medication 1 ea DAILY PO 12/28/16 09:00 Future Hold (Ventolin Hfa Inh) 1 puff Q4H PRN INH 12/27/16 09:30 (KlonoPIN) 0.5 mg BID PO 12/27/16 21:00 (Catapres) 0.2 mg HS PO 12/27/16 21:00 (PROzac) 40 mg DAILY PO 12/28/16 09:00 Patient's Strengths (min. 2) In monitored setting. Verbally fluent. Physical Exam Vital Signs Vital Signs Date Time Temp Pulse Resp B/P Pulse Ox O2 Delivery O2 Flow Rate FiO2 12/27/16 10:09 97.7 89 16 129/82 99 12/26/16 18:30 Room Air Mental Status Examination Alert depresse Afro-E[place]ian female, she is quite guarded somewhat uncooperative and resistant to responses. Very poor eye contact Appearance Somewhat disheveled Speech: Hesitant, Slow, Tangential Orientation: Person, Place Memory: Unremarkable (poor) Thought Process: Loose Association Thought Content: Paranoid Language Very poor Fund of Knowledge Poor Hallucination Type: Auditory (of a somewhat command nature) Attention and Concentration: Other (poor) Suicidal Ideation: Yes Previous Suicide Attempts: No Homicidal Ideation: No Previous Homicide Attempts: No Insight: Poor Judgment: Poor Affect: Other (marked decreased range intensity) Mood: Sad Motor Activity: Normal gait Assessment & Plan Problem List: (1) Schizophrenia ICD Code: F20.9 (2) Borderline intellectual functioning ICD Code: R41.83 Assessment & Plan Estimated LOS: days Request HC Surrog/Guard Advoc?: No Problem Qualifiers (1) Schizophrenia: Qualified Code: F20.9 - Schizophrenia, unspecified type Zheng Zheng MD Dec 27, 2016 14:49
[2016-12-27] MEDS: risperiDONE ODT 1 MG TAB PO SCH ×2 (15:00→22:01)
--- NOTE | 2016-12-27 15:06 | HHI.PYPN ---
Subjective Remarks Patient seen in her room with nurse Guera, chart reviewed, patient compliant medication. Patient giving a confusing history of originally living here in [place] return to [place] to help with family a purchase hospitalized there is with a discovered she may have cancers. She states She returned to this area with her and was hospitalized here, also confirm the "cancers ". She was then referred to a nursing home. I question if this is some type of a conversion reaction reflecting patient having a basic mental illness.. Patient seemed quite suggestive with me recommending medication to treat her "cancer". We'll start patient on Respinol M tab 1 mg twice a day Review of Systems Except as stated in HPI: all other systems reviewed are Neg Objective Alert: Yes [place]: Person, Place Mood: Anxious Affect: Other (slight increase range and intensity) Memory Intact: Comment (poor) Hallucinations: Tactile Delusions: Yes Delusion Type: Other (conversion reaction) Suicidal: Ideation (denies) Homicidal: Ideation (denies) Insight/Judgment Very poor Labs Test 12/26/16 19:20 White Blood Count 6.5 TH/MM3 Red Blood Count 4.28 MIL/MM3 Hemoglobin 12.0 GM/DL Hematocrit 36.3 % Mean Corpuscular Volume 84.8 FL Mean Corpuscular Hemoglobin 28.0 PG Mean Corpuscular Hemoglobin 33.0 % Concent Red Cell Distribution Width 14.8 % Platelet Count 320 TH/MM3 Mean Platelet Volume 8.5 FL Neutrophils (%) (Auto) 65.5 % Lymphocytes (%) (Auto) 22.7 % Monocytes (%) (Auto) 8.6 % Eosinophils (%) (Auto) 2.6 % Basophils (%) (Auto) 0.6 % Neutrophils # (Auto) 4.3 TH/MM3 Lymphocytes # (Auto) 1.5 TH/MM3 Monocytes # (Auto) 0.6 TH/MM3 Eosinophils # (Auto) 0.2 TH/MM3 Basophils # (Auto) 0.0 TH/MM3 CBC Comment DIFF FINAL Differential Comment Sodium Level 135 MEQ/L Potassium Level 3.9 MEQ/L Chloride Level 105 MEQ/L Carbon Dioxide Level 23.3 MEQ/L Anion Gap 7 MEQ/L Blood Urea Nitrogen 13 MG/DL Creatinine 0.56 MG/DL Estimat Glomerular Filtration 156 ML/MIN Rate Random Glucose 93 MG/DL Calcium Level 9.3 MG/DL Total Bilirubin 0.2 MG/DL Aspartate Amino Transf 18 U/L (AST/SGOT) Alanine Aminotransferase 23 U/L (ALT/SGPT) Alkaline Phosphatase 155 U/L Total Protein 8.3 GM/DL Albumin 3.3 GM/DL Salicylates Level 1.8 MG/DL Urine Opiates Screen NEG Acetaminophen Level LESS THAN 2.0 MCG/ML Urine Barbiturates Screen NEG Urine Amphetamines Screen NEG Urine Benzodiazepines Screen NEG Urine Cocaine Screen NEG Urine Cannabinoids Screen NEG Ethyl Alcohol Level LESS THAN 3 MG/DL Vitals/IOs Vital Signs Date Time Temp Pulse Resp B/P Pulse Ox O2 Delivery O2 Flow Rate FiO2 12/27/16 10:09 97.7 89 16 129/82 99 12/26/16 18:30 Room Air Assessment & Plan Problem List: (1) Schizophrenia ICD Code: F20.9 (2) Borderline intellectual functioning ICD Code: R41.83 Assessment & Plan Estimated LOS: days patient continues quite psychotic and delusional, will start patient on Resporal 1 mg twice a day M tab Justification for Cont. Inpt. At this time patient will decompensate the placed in a lower level of care Discharge Planning To be determined Request HC Surrog/Guard Advoc?: No Problem Qualifiers (1) Schizophrenia: Qualified Code: F20.1 - Disorganized schizophrenia Zheng Zheng MD Dec 27, 2016 15:06
[2016-12-27] MEDS: cloNIDine HCL 0.2 MG TAB PO SCH (21:00)
[2016-12-27] MEDS: clonazePAM 0.5 MG TAB PO SCH (22:01)
[2016-12-28 06:10] VITALS: BP 122/60; PULSE 91; RESP 18; TEMP 98.1; O2SAT 97
[2016-12-28] MEDS: FERROUS SULFATE 325 MG (65 MG ELEMENTAL IRON) TAB PO SCH (08:42)
[2016-12-28] MEDS: clonazePAM 0.5 MG TAB PO SCH ×2 (08:42→20:09)
[2016-12-28] MEDS: NICOTINE 21 MG/24 HR PATCH T-DERMAL SCH (08:43)
[2016-12-28] MEDS: FLUoxetine HCL 20 MG CAP PO SCH (08:43)
[2016-12-28] MEDS: risperiDONE ODT 1 MG TAB PO SCH ×2 (08:43→20:09)
[2016-12-28] MEDS ORDERED: ETHINYL ESTRADIOL PO SCH (09:00)
[2016-12-28] MEDS ORDERED: NORETHINDRONE PO SCH (09:00)
[2016-12-28] MEDS ORDERED: FERROUS FUMARATE PO SCH (09:00)
--- NOTE | 2016-12-28 11:34 | HHI.PYPN ---
Subjective Remarks Patient seen and examined with nurse. Chart reviewed. Case discussed with nursing staff who reports that the patient has been no behavioral problem and has been denying suicidal ideation or auditory hallucinations so far today. On my examination today, the patient presents as somewhat childlike in discharge focus. She says that she is missing out on a lot of activities at home and would like to be discharged if possible. She says that her mood is "much better " she says that her auditory hallucinations are "gone" and denies any other hallucinatory material. She denies any suicidal ideation. Denies any side effects from medications. No physical complaints. Review of Systems ROS Limitations: Poor Historian Except as stated in HPI: all other systems reviewed are Neg Objective Alert: Yes [place]: Person, Place Mood: Calm Affect: Blunted (childlike) Memory Intact: Comment (not assessed) Hallucinations: Other (Denies AVH) Delusions: No Delusion Type: Other (No delusions) Suicidal: Ideation (Denies SI) Homicidal: Ideation (No HI) Insight/Judgment Poor Remarks No abnormal motor movements noted. Thought process linear. Grooming and hygiene fair. Labs Test 12/27/16 20:28 Beta HCG, Qualitative LESS THAN 1 MIU/ML Labs reviewed. Vitals/IOs Vital Signs Date Time Temp Pulse Resp B/P Pulse Ox O2 Delivery O2 Flow Rate FiO2 12/28/16 06:10 98.1 91 18 122/60 97 12/26/16 18:30 Room Air Intake and Output 12/27/16 12/27/16 12/28/16 08:00 16:00 00:00 Intake Total 240 ml Balance 240 ml Assessment & Plan Problem List: (1) Adjustment disorder ICD Code: F43.20 (2) Borderline intellectual functioning ICD Code: R41.83 Assessment & Plan Rapid improvement in patient's presenting psychiatric symptoms. I suspect she was experiencing an adjustment reaction to some stressor, and not a chapito lynne mood or psychotic episode, and this adjustment reaction is now resolving. I will continue current psychotropics as ordered. Continue other medications and care as ordered. Justification for Cont. Inpt. Monitoring for impairment in safety, so far none noted. Discharge Planning Possible discharge tomorrow. Request HC Surrog/Guard Advoc?: No Problem Qualifiers (1) Adjustment disorder: Qualified Code: F43.21 - Adjustment disorder with depressed mood Steve Ramirez MD Dec 28, 2016 11:34
[2016-12-28 12:29] LABS: HDL CHOLESTEROL 52.1 MG/DL (40.0-60.0); LDL CHOLESTEROL 134 MG/DL (0-99)
[2016-12-28 18:23] LABS: HEMOGLOBIN A1a 1.2 %; HEMOGLOBIN Ao 83.7 %; HEMOGLOBIN LA1C 2.1 %; HEMOGLOBIN P3 3.8 %
[2016-12-28 19:12] VITALS: BP 122/77; PULSE 109; RESP 18; TEMP 97.7; O2SAT 98
[2016-12-28 20:00] VITALS: BP 160/78; PULSE 103; RESP 20
[2016-12-28] MEDS: cloNIDine HCL 0.2 MG TAB PO SCH (20:09)
[2016-12-29 06:04] VITALS: BP 109/63; PULSE 84; RESP 18; TEMP 98.3; O2SAT 99
[2016-12-29] MEDS: FLUoxetine HCL 20 MG CAP PO SCH (08:45)
[2016-12-29] MEDS: risperiDONE ODT 1 MG TAB PO SCH (08:45)
[2016-12-29] MEDS: clonazePAM 0.5 MG TAB PO SCH (08:45)
[2016-12-29] MEDS: NICOTINE 21 MG/24 HR PATCH T-DERMAL SCH (08:46)
[2016-12-29] MEDS ORDERED: REMOVE OLD PATCH T-DERMAL SCH (09:00)
[2016-12-29] MEDS: FERROUS SULFATE 325 MG (65 MG ELEMENTAL IRON) TAB PO SCH (09:00)
[2016-12-29] MEDS ORDERED: RISP1TAB54 PO (12:32)
[2016-12-29] MEDS ORDERED: FLUO20CA12 PO (12:32)
--- NOTE | 2016-12-29 12:32 | HHI.DS ---
Psychiatry Discharge Summary Inpatient Psychiatric care?: Yes Advance Directive: No Reason Not Provided: Due to Patient Condition Mental Health AdvanceDirective: No Health Care Proxy: No Admission Admission Date Dec 27, 2016 at 08:20 Admission Diagnosis: (1) Schizophrenia ICD Code: F20.9 (2) Borderline intellectual functioning ICD Code: R41.83 Brief History Ms. Sheehan is a 26-year-old female with a self-reported history of bipolar disorder and a chart diagnosis of schizophrenia, followed outpatient by Dr. Kwon (most recently seen by Dr. Lr), who presents under a [place]campo act by her psychotherapist alleging suicidal threats. Reviewing the electronic medical record, I note that the patient saw Dr. Lr in the office on 12/23 for her Abilify Maintena injection. Patient was most recently psychiatrically admitted here under Dr. Sparks in 2014. Patient seen and examined. Chart reviewed. Case discussed with nurse. On my examination today, the patient continues to endorse suicidal ideation. 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 She says that she wants to strangle herself with her shoelaces. No urge to hurt self in hospital setting. She says that she has been feeling increasingly depressed for the last several weeks without clear trigger. She endorses hopelessness and worthlessness. Sleep and appetite are fair. She does describe some intermittent auditory hallucinations "telling me to do bad things" but does not describe any presently. No delusions. No hypomanic/manic symptoms. No HI. No side effects from meds. Remainder of the psychiatric ROS is negative. Past psychiatric history: Diagnoses as above. Follows outpatient with Dr. Kwon. Last admission was reportedly here under Dr. Sparks. Endorses a history of suicide attempts by trying to drown herself in 2015. Family history: Patient denies family history of mental illness. Chemical dependency history: Patient denies any abuse of drugs or alcohol. Social history: The patient reports that she lives with a roommate. She is single with no children. High school educated. On disability. Denies legal problems. Denies access to guns or firearms. Tobacco Use In Past 30 Days: 5 or More Cigarettes/Day Alcohol Use: 2-4 Times Per Month Hospital Course Patient was admitted to a locked, inpatient psychiatric unit. Appropriate precautions in place throughout patient's hospital stay. Patient was seen and examined daily on the unit by psychiatry and also visited by counselor. Psychotropic medications were adjusted. Patient had rapid resolution of presenting psychiatric symptomatology, leading me to suspect a component of adjustment reaction. There was no evidence of any suicidality or homicidality on the inpatient unit. The patient remained in good behavioral control and was medication compliant. On the day of discharge: Patient seen and examined with counselor. Chart reviewed. Case discussed with nursing staff. Per nursing staff, no behavioral issues overnight. On my examination today, patient is requesting discharge from the inpatient psychiatric unit. Mood is reportedly improved versus admission, and she does seem quite euthymic. No depressive or hypomanic/manic symptoms noted. Denies any suicidal or homicidal ideation, intent or plan and contracts for safety. Denies any audiovisual hallucinations. Denies command auditory hallucinations. No delusional material. Denies side effects from medications. No physical complaints. Weighing the acute, chronic, and protective factors and based on the available evidence, I criminal court judge to a reasonable degree of medical certainty that the patient is at low imminent risk of harm to self or others from a mental illness as defined under the Ocampo act and her level of function is adequate for outpatient care. Patient has maximized benefit from this inpatient psychiatric hospital stay and will be discharged today with psychiatric follow-up as arranged by counselor. Patient is also to follow-up with primary care. I counseled the patient regarding warning signs for need to return to the psychiatric emergency room as part of the general safety plan. Results Blood Pressure 109 / 63 Vital Signs Date Time Temp Pulse Resp B/P Pulse Ox O2 Delivery O2 Flow Rate FiO2 12/29/16 06:04 98.3 84 18 109/63 99 12/26/16 18:30 Room Air Laboratory Tests Test 12/26/16 12/28/16 19:20 11:43 Monocytes (%) (Auto) 8.6 % (0.0-8.0) Sodium Level 135 MEQ/L (136-145) Alkaline Phosphatase 155 U/L (45-117) Total Protein 8.3 GM/DL (6.4-8.2) Albumin 3.3 GM/DL (3.4-5.0) Salicylates Level 1.8 MG/DL (2.8-20.0) Acetaminophen Level LESS THAN 2.0 MCG/ML (10.0-30.0) Hemoglobin A1c 6.3 % (4.3-6.0) Cholesterol Level 201 MG/DL (120-200) LDL Cholesterol 134 MG/DL (0-99) Laboratory Results Test 12/28/16 11:43 Hemoglobin A1c 6.3 % (4.3-6.0) Triglycerides Level 75 MG/DL (42-150) Cholesterol Level 201 MG/DL (120-200) LDL Cholesterol 134 MG/DL (0-99) HDL Cholesterol 52.1 MG/DL (40.0-60.0) Summary of Procedures None done Imaging None done Pending results at discharge: No Medications # of Antipsychotic meds at D/C: 2 Appropriate >1 Antipsych meds?: 4 Approp Antipsych med options 1 - Minimum of three failed multiple trials of monotherapy. 2 - Documented plan to taper to monotherapy due to previous use of multiple meds OR cross-taper in progress at D/C. 3 - Documentation of augmentation of Clozapine. 4 - Justification other than those listed in allowable values 1-3, document here : Required multiple antipsychotics for stabilization. Discharge Discharge Date: Dec 29, 2016 Discharge Diagnosis: (1) Adjustment disorder Diagnosis: Principal ICD Code: F43.20 (2) Schizophrenia Diagnosis: Secondary ICD Code: F20.9 (3) Borderline intellectual functioning Diagnosis: Secondary ICD Code: R41.83 Mental Status Exam at Disch Patient is casually dressed. She is well groomed. Patient is awake and alert and oriented to person and hospital at least. No motor abnormalities noted. Speech is within normal limits for rate, tone, volume. Mood is euthymic. Affect is full and reactive. Thought process linear. No delusions elicited. Denies audiovisual hallucinations and does not appear internally stimulated. Denies suicidal or homicidal ideation, intent, or plan and contracts for safety. Insight and judgment poor. Pt Condition on Discharge: Stable Discharge Disposition: Discharge Home Discharge Instructions Diet Instructions: As Tolerated, No Restrictions Activities you can perform: Weight Bearing as Marga Scheduled Appointment: as per counselor's notes New Medications: Fluoxetine (Fluoxetine) 20 Mg Capsule 40 MG PO DAILY Mental Health Days 15 Ref 1 CAP Risperidone Odt (Risperdal M-Tab) 1 Mg Tab 1 MG PO BID Mental Health Days 15 Ref 1 TAB Continued Medications: Albuterol 18 GM Inh (Ventolin Hfa 18 GM Inh) 90 Mcg/Act Aer 1 PUFF INH Q4H PRN SHORTNESS OF BREATH #1 Ref 3 INHALER Albuterol Neb (Albuterol Neb) 2.5 Mg/0.5 Ml Neb 2.5 MG NEB Q6HR NEB The Albuterol Sulfate Inhalation Solution is concentrated and must be diluted. PRN SOB/WHEEZING #1 Ref 3 BOX Aripiprazole ER Inj (Abilify Maintena ER Inj) 400 Mg Susp 400 MG IM MONTHLY Schizophrenia #1 Ref 10 INJECTION Clonazepam (Klonopin) 0.5 Mg Tab 0.5 MG PO BID Anxiety #60 Ref 3 TAB Clonidine (Clonidine) 0.2 Mg Tab 0.2 MG PO HS #30 Ref [address] (Ferrous Sulfate DR) 324 Mg Tabdr 324 MG PO DAILY Nutritional Supplement #60 Ref 3 TAB Ibuprofen (Ibuprofen) 800 Mg Tab 800 MG PO Q8H PRN Pain/Inflammation #21 TAB Norethindrone-Ethinyl Estradiol-Fe (Lo Loestrin Fe 06/14) 1-10 Mg-Mcg Tab 1 TAB PO DAILY Control #30 Ref 3 PACK Discharge Time <= 30 minutes Discharge/Advance Care Plan Health Problems: (1) Adjustment disorder (2) Borderline intellectual functioning Goals to promote your health * To prevent worsening of your condition and complications * To maintain your health at the optimal level Directions to meet your goals Take your medications as prescribed Follow your dietary instruction Follow activity as directed Keep your appointments as scheduled Take your immunizations and boosters as scheduled If your symptoms worsen call your PCP, if no PCP go to Urgent Care Center or Emergency Room For 26/12 questions related to your inpatient stay or results of tests pending at discharge, please contact Dr. Steve Ramirez at Smoking is Dangerous to Your Health. Avoid second hand smoking Problem Qualifiers (1) Schizophrenia: Qualified Code: F20.9 - Schizophrenia, unspecified type (2) Adjustment disorder: Qualified Code: F43.21 - Adjustment disorder with depressed mood Steve Ramirez MD Dec 29, 2016 12:32
== END 2016-12-29 14:00 | disposition home or self-care (01) | DRG 885 ==
LOC: NEDAMB 17:38 → NEDA 12-27 08:20 → H260 12-27 09:15
PROVIDERS: ADMIT Psychiatry & Neurology Psychiatry; ATTEND Psychiatry & Neurology Psychiatry
DX: F20.9 Schizophrenia, unspecified (principal); R45.851 Suicidal ideations; F31.30 Bipolar disorder, current episode depressed, mild or moderate severity, unspecified; E11.9 Type 2 diabetes mellitus without complications; R41.83 Borderline intellectual functioning; F43.21 Adjustment disorder with depressed mood; Z86.73 Personal history of transient ischemic attack (TIA), and cerebral infarction without residual deficits; Z91.5 Personal history of self-harm; F17.210 Nicotine dependence, cigarettes, uncomplicated; F41.9 Anxiety disorder, unspecified; J45.909 Unspecified asthma, uncomplicated
CPT/HCPCS: 80053; 80061; 80307; 83036; 84703; 85025

== ENCOUNTER 2017-02-14 18:46 | Emergency (ER) | payer OTHER ==
[~2017-02-14] VITALS: Ht 160 cm; Wt 85.0 kg
[~2017-02-14 18:46] MED LIST changes: +ARIP1TAB12 PO; -ARIP400I IM; -CLON.5 PO; +IBUP-1129 PO; -PROZ20CA11 PO; +PROZ40CA PO; +RISP1TAB2 PO
[2017-02-14 19:25] VITALS: BP 132/75; PULSE 87; RESP 17; TEMP 98.6; O2SAT 97
--- NOTE | 2017-02-14 19:38 | PD ---
HPI Chief Complaint: Psychiatric Symptoms Time Seen by Provider: 19:16 Travel History International Travel<30 days: No Contact w/Intl Traveler<30days: No History of Present Illness HPI Patient is a 26-year-old female presenting to emergency Department voluntarily due to auditory hallucinations telling her to kill herself. Patient is a history of schizophrenia, she reports compliance with her medications. She is currently living with roommates and is monitored regarding her medication. Patient reports previous suicide attempt. She denies any physical pain at this time. Patient states the voices are telling her to get a knife and herself. PFSH Past Medical History Asthma: Yes Bipolar Disorder: Yes Anxiety: Yes Depression: Yes Cancer: No Cardiovascular Problems: No Cerebrovascular Accident: Yes (TIA) Diabetes: Yes Diminished Hearing: No Endocrine: No Gastrointestinal Disorders: No Headaches: No Implanted Vascular Access Dvce: No Musculoskeletal: No Neurologic: Yes Psychiatric: Yes Respiratory: Yes Seizures: Yes : 0 Para: 0 Miscarriage: 0 : 0 Past Surgical History Appendectomy: Yes Other Surgery: Yes Social History Alcohol Use: No Tobacco Use: No Substance Use: Yes (MARIJUANA) Allergies-Medications (Allergen,Severity, Reaction): Coded Allergies: lurasidone (Unverified Allergy, Severe, SEIZURE, 02/14/17) Milk Containing Products (Unverified Allergy, Unknown, 02/14/17) new face soap ziprasidone (Unverified Allergy, Unknown, Seizures, 02/14/17) pt claims she had "two seizures" while taking Geodon. *MDRO Multi-Drug Resistant Organism (Unverified Adverse Reaction, Unknown , 02/14/17) MRSA finger wound in 2004 & 2005. MRSA PCR Screen positive 11/28/14. Reported Meds & Prescriptions Reported Meds & Active Scripts Active Motrin Ib (Ibuprofen) 200 Mg Tablet 400 Mg PO TID Risperidone 1 Mg Tab 1 Mg PO BID Prozac (Fluoxetine HCl) 40 Mg Cap 40 Mg PO DAILY Aripiprazole 10 Mg Tab 10 Mg PO DAILY Clonidine (Clonidine HCl) 0.2 Mg Tab 0.2 Mg PO HS Blood Glucose Test Strips Strips Strip 1 Ea .ROUTE DIRECTED Ibuprofen 800 Mg Tab 800 Mg PO Q8H PRN Albuterol Neb (Albuterol Sulfate) 2.5 Mg/0.5 Ml Neb 2.5 Mg NEB Q6HR NEB PRN The Albuterol Sulfate Inhalation Solution is concentrated and must be diluted. Ferrous Sulfate DR (Ferrous Sulfate) 324 Mg Tabdr 324 Mg PO DAILY Ventolin Hfa 18 GM Inh (Albuterol Sulfate) 90 Mcg/Act Aer 1 Puff INH Q4H PRN Lo Loestrin Fe 1/10 (Norethindrone-Ethinyl Estradiol-Fe) 1-10 Mg-Mcg Tab 1 Tab PO DAILY Review of Systems Except as stated in HPI: all other systems reviewed are Neg Psychiatric: Positive: Suicidal Ideations, Disorder of Thought, Mood Disorder Physical Exam Narrative GENERAL: Well-developed, well-nourished, alert female. Resting comfortably in no acute distress. SKIN: Warm and dry. HEAD: Atraumatic. Normocephalic. EYES: Pupils equal and round. No scleral icterus. No injection or drainage. ENT: No nasal bleeding or discharge. Mucous membranes pink and moist. NECK: Trachea midline. No JVD. CARDIOVASCULAR: Regular rate and rhythm. RESPIRATORY: No accessory muscle use. Clear to auscultation. Breath sounds equal bilaterally. GASTROINTESTINAL: Abdomen soft, non-tender, nondistended. Hepatic and splenic margins not palpable. MUSCULOSKELETAL: Extremities without clubbing, cyanosis, or edema. No obvious deformities. NEUROLOGICAL: Awake and alert. No obvious cranial nerve deficits. Motor grossly within normal limits. Five out of 5 muscle strength in the arms and legs. Normal speech. PSYCHIATRIC: Flat mood and affect; insight and judgment normal. Data Data Last Documented VS Vital Signs Date Time Temp Pulse Resp B/P (MAP) Pulse Ox O2 Delivery O2 Flow Rate FiO2 02/15/17 02:28 77 18 116/74 (88) 96 Room Air 02/14/17 19:25 98.6 Orders Orders Complete Blood Count With Diff (02/14/17 19:19) Comprehensive Metabolic Panel (02/14/17 19:19) Urinalysis - C+S If Indicated (02/14/17 19:19) Psych Screen (02/14/17 19:19) Drug Screen, Random Urine (02/14/17 19:19) Urine Culture (02/14/17 19:35) Diet Diabetic (02/15/17 Breakfast) Diet Regular Basic (02/15/17 Lunch) Labs Laboratory Tests Test 02/14/17 19:35 White Blood Count 5.9 TH/MM3 Red Blood Count 4.47 MIL/MM3 Hemoglobin 12.5 GM/DL Hematocrit 38.9 % Mean Corpuscular Volume 86.8 FL Mean Corpuscular Hemoglobin 27.9 PG Mean Corpuscular Hemoglobin Concent 32.2 % Red Cell Distribution Width 13.8 % Platelet Count 286 TH/MM3 Mean Platelet Volume 8.7 FL Neutrophils (%) (Auto) 60.8 % Lymphocytes (%) (Auto) 25.4 % Monocytes (%) (Auto) 7.8 % Eosinophils (%) (Auto) 5.4 % Basophils (%) (Auto) 0.6 % Neutrophils # (Auto) 3.6 TH/MM3 Lymphocytes # (Auto) 1.5 TH/MM3 Monocytes # (Auto) 0.5 TH/MM3 Eosinophils # (Auto) 0.3 TH/MM3 Basophils # (Auto) 0.0 TH/MM3 CBC Comment DIFF FINAL Differential Comment Urine Color YELLOW Urine Turbidity HAZY Urine pH 5.5 Urine Specific [place] 1.035 Urine Protein 30 mg/dL Urine Glucose (UA) NEG mg/dL Urine Ketones NEG mg/dL Urine Occult Blood NEG Urine Nitrite NEG Urine Bilirubin NEG Urine Urobilinogen 2.0 MG/DL Urine Leukocyte Esterase SMALL Urine RBC 1 /hpf Urine WBC 9 /hpf Urine Squamous Epithelial Cells 20 /hpf Urine Transitional Epithelial Cells <1 /hpf Urine Bacteria RARE /hpf Urine Hyaline Casts 1 /lpf Urine Mucus FEW /lpf Microscopic Urinalysis Comment CULTURE INDICATED Blood Urea Nitrogen 8 MG/DL Creatinine 0.48 MG/DL Random Glucose 105 MG/DL Total Protein 7.9 GM/DL Albumin 3.5 GM/DL Calcium Level 9.2 MG/DL Alkaline Phosphatase 119 U/L Aspartate Amino Transf (AST/SGOT) 21 U/L Alanine Aminotransferase (ALT/SGPT) 26 U/L Total Bilirubin LESS THAN 0.1 MG/DL Sodium Level 138 MEQ/L Potassium Level 3.8 MEQ/L Chloride Level 106 MEQ/L Carbon Dioxide Level 22.8 MEQ/L Anion Gap 9 MEQ/L Estimat Glomerular Filtration Rate 186 ML/MIN Urine Opiates Screen NEG Urine Barbiturates Screen NEG Urine Amphetamines Screen NEG Urine Benzodiazepines Screen NEG Urine Cocaine Screen NEG Urine Cannabinoids Screen NEG MDM Medical Decision Making Medical Screen Exam Complete: Yes Emergency Medical Condition: Yes Medical Record Reviewed: Yes Interpretation(s) Laboratory Tests Test 02/14/17 19:35 White Blood Count 5.9 TH/MM3 Red Blood Count 4.47 MIL/MM3 Hemoglobin 12.5 GM/DL Hematocrit 38.9 % Mean Corpuscular Volume 86.8 FL Mean Corpuscular Hemoglobin 27.9 PG Mean Corpuscular Hemoglobin Concent 32.2 % Red Cell Distribution Width 13.8 % Platelet Count 286 TH/MM3 Mean Platelet Volume 8.7 FL Neutrophils (%) (Auto) 60.8 % Lymphocytes (%) (Auto) 25.4 % Monocytes (%) (Auto) 7.8 % Eosinophils (%) (Auto) 5.4 % Basophils (%) (Auto) 0.6 % Neutrophils # (Auto) 3.6 TH/MM3 Lymphocytes # (Auto) 1.5 TH/MM3 Monocytes # (Auto) 0.5 TH/MM3 Eosinophils # (Auto) 0.3 TH/MM3 Basophils # (Auto) 0.0 TH/MM3 CBC Comment DIFF FINAL Differential Comment Urine Color YELLOW Urine Turbidity HAZY Urine pH 5.5 Urine Specific [place] 1.035 Urine Protein 30 mg/dL Urine Glucose (UA) NEG mg/dL Urine Ketones NEG mg/dL Urine Occult Blood NEG Urine Nitrite NEG Urine Bilirubin NEG Urine Urobilinogen 2.0 MG/DL Urine Leukocyte Esterase SMALL Urine RBC 1 /hpf Urine WBC 9 /hpf Urine Squamous Epithelial Cells 20 /hpf Urine Transitional Epithelial Cells <1 /hpf Urine Bacteria RARE /hpf Urine Hyaline Casts 1 /lpf Urine Mucus FEW /lpf Microscopic Urinalysis Comment CULTURE INDICATED Blood Urea Nitrogen 8 MG/DL Creatinine 0.48 MG/DL Random Glucose 105 MG/DL Albumin 3.5 GM/DL Calcium Level 9.2 MG/DL Aspartate Amino Transf (AST/SGOT) 21 U/L Sodium Level 138 MEQ/L Potassium Level 3.8 MEQ/L Chloride Level 106 MEQ/L Carbon Dioxide Level 22.8 MEQ/L Anion Gap 9 MEQ/L Estimat Glomerular Filtration Rate 186 ML/MIN Urine Opiates Screen NEG Urine Barbiturates Screen NEG Urine Amphetamines Screen NEG Urine Benzodiazepines Screen NEG Urine Cocaine Screen NEG Urine Cannabinoids Screen NEG Vital Signs Date Time Temp Pulse Resp B/P (MAP) Pulse Ox O2 Delivery O2 Flow Rate FiO2 02/14/17 19:25 98.6 87 17 132/75 (94 97 Differential Diagnosis Schizophrenia versus mood disorder versus psychosis versus suicidal ideations versus other Narrative Course Patient is a 26-year-old female presenting voluntarily for psychiatric evaluation due to auditory hallucinations telling her to harm herself with a knife. Patient has a history of schizophrenia and reports compliance with her medications. Urinalysis with reflex culture pending. Patient denied any urinary complaints. Will defer treatment until culture results. Labs reviewed, no acute abnormalities identified. Patient is medically clear for psychiatric evaluation this time. Diagnosis Primary Impression: Medical clearance for psychiatric admission Condition: Stable Daniella Hill [facility] Feb 14, 2017 19:38
[2017-02-14 20:17] LABS: BACTERIA, URINE RARE /hpf; BLOOD, URINE NEG (NEG); COMMENT (UR) CULTURE INDICATED; CULTURE IF INDICATED CULTURE INDICATED; GLUCOSE,URINE NEG (NEG); HYALINE CAST, URINE 1 /lpf (RARE); KETONE, URINE NEG (NEG); MUCUS URINE FEW /lpf (OCC); NITRITE,URINE NEG (NEG); PH, URINE 5.5 (5.0-8.5); SQUAMOUS EPITHELIAL CELL URINE 20 /hpf (0-5); TRANSITIONAL EPI CELLS, URINE <1 /hpf; URINE COLOR YELLOW (YELLW/STRAW)
[2017-02-14 20:30] LABS: AUTOMATED NEUTROPHIL # 3.6 TH/MM3 (1.8-7.7); BASOPHIL % 0.6 % (0.0-2.0); EOSINOPHIL # 0.3 TH/MM3 (0-0.4); EOSINOPHIL % 5.4 % (0.0-4.0); HEMATOCRIT 38.9 % (35.0-46.0); HEMO FLAGS DIFF FINAL; LYMPH % 25.4 % (9.0-44.0); LYMPHOCYTE # 1.5 TH/MM3 (1.0-4.8); MEAN CELL VOLUME 86.8 FL (80.0-100.0); MEAN CORPUSCULAR HEMOGLOBIN 27.9 PG (27.0-34.0); MEAN CORPUSCULAR HGB CONC 32.2 % (32.0-36.0); MONO % 7.8 % (0.0-8.0); NEUT % 60.8 % (16.0-70.0); PLATELET COUNT 286 TH/MM3 (150-450); RED BLOOD COUNT 4.47 MIL/MM3 (4.00-5.30); RED CELL DISTRIBUTION WIDTH 13.8 % (11.6-17.2); WHITE BLOOD COUNT 5.9 TH/MM3 (4.0-11.0)
[2017-02-14 20:36] LABS: ANION GAP 9 MEQ/L (5-15); AST (GOT) 21 U/L (15-37); BICARBONATE 22.8 MEQ/L (21.0-32.0); BLOOD UREA NITROGEN 8 MG/DL (7-18); CHLORIDE 106 MEQ/L (98-107); GLOMERULAR FILTRATION RATE 186 ML/MIN (>89); POTASSIUM 3.8 MEQ/L (3.5-5.1); SODIUM (NA) 138 MEQ/L (136-145)
[2017-02-14 20:40] LABS: ALKALINE PHOSPHATASE 119 U/L (45-117); ALT (GPT) 26 U/L (10-53); TOTAL BILIRUBIN ADULT LESS THAN 0.1 MG/DL (0.2-1.0)
[2017-02-14 23:12] VITALS: BP 115/56; PULSE 85; RESP 19; O2SAT 99
[2017-02-15 02:28] VITALS: BP 116/74; PULSE 77; RESP 18; O2SAT 96
--- NOTE | 2017-02-15 12:08 | PD ---
Physical Exam Date Seen by Provider: Feb 15, 2017 Time Seen by Provider: 12:07 Narrative Peripheral history physical examination please see previous providers note. Data Data Last Documented VS Vital Signs Date Time Temp Pulse Resp B/P (MAP) Pulse Ox O2 Delivery O2 Flow Rate FiO2 02/15/17 02:28 77 18 116/74 (88) 96 Room Air 02/14/17 19:25 98.6 Orders Orders Complete Blood Count With Diff (02/14/17 19:19) Comprehensive Metabolic Panel (02/14/17 19:19) Urinalysis - C+S If Indicated (02/14/17 19:19) Psych Screen (02/14/17 19:19) Drug Screen, Random Urine (02/14/17 19:19) Urine Culture (02/14/17 19:35) Diet Diabetic (02/15/17 Breakfast) Diet Regular Basic (02/15/17 Lunch) Labs Laboratory Tests Test 02/14/17 19:35 White Blood Count 5.9 TH/MM3 Red Blood Count 4.47 MIL/MM3 Hemoglobin 12.5 GM/DL Hematocrit 38.9 % Mean Corpuscular Volume 86.8 FL Mean Corpuscular Hemoglobin 27.9 PG Mean Corpuscular Hemoglobin Concent 32.2 % Red Cell Distribution Width 13.8 % Platelet Count 286 TH/MM3 Mean Platelet Volume 8.7 FL Neutrophils (%) (Auto) 60.8 % Lymphocytes (%) (Auto) 25.4 % Monocytes (%) (Auto) 7.8 % Eosinophils (%) (Auto) 5.4 % Basophils (%) (Auto) 0.6 % Neutrophils # (Auto) 3.6 TH/MM3 Lymphocytes # (Auto) 1.5 TH/MM3 Monocytes # (Auto) 0.5 TH/MM3 Eosinophils # (Auto) 0.3 TH/MM3 Basophils # (Auto) 0.0 TH/MM3 CBC Comment DIFF FINAL Differential Comment Urine Color YELLOW Urine Turbidity HAZY Urine pH 5.5 Urine Specific [place] 1.035 Urine Protein 30 mg/dL Urine Glucose (UA) NEG mg/dL Urine Ketones NEG mg/dL Urine Occult Blood NEG Urine Nitrite NEG Urine Bilirubin NEG Urine Urobilinogen 2.0 MG/DL Urine Leukocyte Esterase SMALL Urine RBC 1 /hpf Urine WBC 9 /hpf Urine Squamous Epithelial Cells 20 /hpf Urine Transitional Epithelial Cells <1 /hpf Urine Bacteria RARE /hpf Urine Hyaline Casts 1 /lpf Urine Mucus FEW /lpf Microscopic Urinalysis Comment CULTURE INDICATED Blood Urea Nitrogen 8 MG/DL Creatinine 0.48 MG/DL Random Glucose 105 MG/DL Total Protein 7.9 GM/DL Albumin 3.5 GM/DL Calcium Level 9.2 MG/DL Alkaline Phosphatase 119 U/L Aspartate Amino Transf (AST/SGOT) 21 U/L Alanine Aminotransferase (ALT/SGPT) 26 U/L Total Bilirubin LESS THAN 0.1 MG/DL Sodium Level 138 MEQ/L Potassium Level 3.8 MEQ/L Chloride Level 106 MEQ/L Carbon Dioxide Level 22.8 MEQ/L Anion Gap 9 MEQ/L Estimat Glomerular Filtration Rate 186 ML/MIN Urine Opiates Screen NEG Urine Barbiturates Screen NEG Urine Amphetamines Screen NEG Urine Benzodiazepines Screen NEG Urine Cocaine Screen NEG Urine Cannabinoids Screen NEG MDM Medical Record Reviewed: Yes Supervised Visit with LEONARDO: No Narrative Course Patient presented voluntarily to the emergency department psychiatric evaluation. Patient was seen and evaluated than medically cleared by the emergency department, she was then seen and evaluated by attending psychiatrist. He was felt that she was safe to be discharged. Please see psychiatrist's note. Patient is stable for discharge. Diagnosis Primary Impression: Medical clearance for psychiatric admission Additional Impression: Schizophrenia Qualified Codes: F20.89 - Other schizophrenia Disposition: 01 DISCHARGE HOME Condition: Stable Daniella Hill Feb 15, 2017 12:08
--- NOTE | 2017-02-15 12:21 | PD ---
History of Present Illness Chief Complaint: Psychiatric Symptoms Time Seen by Provider: 11:45 Travel History International Travel<30 Days: No Contact w/Intl Traveler<30days: No Known affected area: No Legal Status Legal Status: Ocampo Act Ocampo Act Signed By: Elvis Hassan History of Present Illness: 26-year-old female, well known to this physician, with a history of schizoaffective disorder versus schizophrenia. Patient is calm, pleasant and cooperative. She was obviously glad to see this physician, as this physician was glad to see her. The patient is not expressing any suicidal or homicidal ideation, plan or intent at this time. She denies any psychotic symptoms as well. Her cognition is intact. She is verbally merlin for safety. Her father is willing to pick her up and she would like to go home. She can continue treatment on an outpatient basis and has medications. She denies any alcohol or substance abuse. This physician feels she is competent to make these decisions. PFSH Past Medical History Asthma: Yes Bipolar Disorder: Yes Anxiety: Yes Depression: Yes Cancer: No Cardiovascular Problems: No Cerebrovascular Accident: Yes (TIA) Diabetes: Yes Patient Takes Glucophage: No Diminished Hearing: No Endocrine: No Gastrointestinal Disorders: No Headaches: No Implanted Vascular Access Dvce: No Musculoskeletal: No Neurologic: Yes Psychiatric: Yes Respiratory: Yes Seizures: Yes Tetanus Vaccination: > 5 Years Influenza Vaccination: Yes ?: Unknown : 0 Para: 0 Miscarriage: 0 : 0 Past Surgical History Appendectomy: Yes Other Surgery: Yes Psychiatric History Psychiatric History Hx Psychiatric Treatment: BIPOLAR DISORDER AND PARANOID SCHIZOPHRENIA. WAS LAST HERE IN DECEMBER History of Inpatient Treatment: Yes Guns or firearms in home: No Social History Hx Alcohol Use: No Hx Tobacco Use: Yes Hx Substance Use: No (PAST MARIJUANA) Other Substances Used: DENIES Hx of Substance Use Treatment: No Allergies-Medications (Allergen,Severity, Reaction): Coded Allergies: lurasidone (Unverified Allergy, Severe, SEIZURE, 02/14/17) Milk Containing Products (Unverified Allergy, Unknown, 02/14/17) new face soap ziprasidone (Unverified Allergy, Unknown, Seizures, 02/14/17) pt claims she had "two seizures" while taking Geodon. *MDRO Multi-Drug Resistant Organism (Unverified Adverse Reaction, Unknown , 02/14/17) MRSA finger wound in 2004 & 2005. MRSA PCR Screen positive 11/28/14. Reported Meds & Prescriptions Reported Meds & Active Scripts Active Motrin Ib (Ibuprofen) 200 Mg Tablet 400 Mg PO TID Risperidone 1 Mg Tab 1 Mg PO BID Prozac (Fluoxetine HCl) 40 Mg Cap 40 Mg PO DAILY Aripiprazole 10 Mg Tab 10 Mg PO DAILY Clonidine (Clonidine HCl) 0.2 Mg Tab 0.2 Mg PO HS Blood Glucose Test Strips Strips Strip 1 Ea .ROUTE DIRECTED Ibuprofen 800 Mg Tab 800 Mg PO Q8H PRN Albuterol Neb (Albuterol Sulfate) 2.5 Mg/0.5 Ml Neb 2.5 Mg NEB Q6HR NEB PRN The Albuterol Sulfate Inhalation Solution is concentrated and must be diluted. Ferrous Sulfate DR (Ferrous Sulfate) 324 Mg Tabdr 324 Mg PO DAILY Ventolin Hfa 18 GM Inh (Albuterol Sulfate) 90 Mcg/Act Aer 1 Puff INH Q4H PRN Lo Loestrin Fe 06/14 (Norethindrone-Ethinyl Estradiol-Fe) 1-10 Mg-Mcg Tab 1 Tab PO DAILY Review of Systems Except as stated in HPI: all other systems reviewed are Neg Exam Alert: Yes Spicer: Person, Place, Date, Situation Mood: Calm Affect: Appropriate Speech: Clear, Logical Eye Contact: Normal Memory Intact: Immediate, Recent, Remote Insight/Judgement Adequate MDM Medical Decision Making Medical Record Reviewed: Yes Assessment/Plan Patient seen at bedside, case discussed with nurse Alston, and medical record reviewed. As stated previously, this physician has known the patient for years. She is feeling better and denies any psychotic symptoms. She denies any suicidality or homicidality and she is verbally merlin for safety. This physician feels she is competent to make decisions and therefore does not qualify for Ocampo act or involuntary psychiatric hospitalization at this time. She is willing and able to follow up on an outpatient basis. Orders Orders Complete Blood Count With Diff (02/14/17 19:19) Comprehensive Metabolic Panel (02/14/17 19:19) Urinalysis - C+S If Indicated (02/14/17 19:19) Psych Screen (02/14/17 19:19) Drug Screen, Random Urine (02/14/17 19:19) Urine Culture (02/14/17 19:35) Diet Diabetic (02/15/17 Breakfast) Diet Regular Basic (02/15/17 Lunch) Results Vital Signs Date Time Temp Pulse Resp B/P (MAP) Pulse Ox O2 Delivery O2 Flow Rate FiO2 02/15/17 02:28 77 18 116/74 (88) 96 Room Air 02/14/17 23:12 85 19 115/56 (75) 99 Room Air 02/14/17 19:25 98.6 87 17 132/75 (94) 97 Laboratory Tests Test 02/14/17 19:35 White Blood Count 5.9 Red Blood Count 4.47 Hemoglobin 12.5 Hematocrit 38.9 Mean Corpuscular Volume 86.8 Mean Corpuscular Hemoglobin 27.9 Mean Corpuscular Hemoglobin Concent 32.2 Red Cell Distribution Width 13.8 Platelet Count 286 Mean Platelet Volume 8.7 Neutrophils (%) (Auto) 60.8 Lymphocytes (%) (Auto) 25.4 Monocytes (%) (Auto) 7.8 Eosinophils (%) (Auto) 5.4 Basophils (%) (Auto) 0.6 Neutrophils # (Auto) 3.6 Lymphocytes # (Auto) 1.5 Monocytes # (Auto) 0.5 Eosinophils # (Auto) 0.3 Basophils # (Auto) 0.0 CBC Comment DIFF FINAL Differential Comment Urine Color YELLOW Urine Turbidity HAZY Urine pH 5.5 Urine Specific [place] 1.035 Urine Protein 30 Urine Glucose (UA) NEG Urine Ketones NEG Urine Occult Blood NEG Urine Nitrite NEG Urine Bilirubin NEG Urine Urobilinogen 2.0 Urine Leukocyte Esterase SMALL Urine RBC 1 Urine WBC 9 Urine Squamous Epithelial Cells 20 Urine Transitional Epithelial Cells <1 Urine Bacteria RARE Urine Hyaline Casts 1 Urine Mucus FEW Microscopic Urinalysis Comment CULTURE INDICATED Blood Urea Nitrogen 8 Creatinine 0.48 Random Glucose 105 Total Protein 7.9 Albumin 3.5 Calcium Level 9.2 Alkaline Phosphatase 119 Aspartate Amino Transf (AST/SGOT) 21 Alanine Aminotransferase (ALT/SGPT) 26 Total Bilirubin LESS THAN 0.1 Sodium Level 138 Potassium Level 3.8 Chloride Level 106 Carbon Dioxide Level 22.8 Anion Gap 9 Estimat Glomerular Filtration Rate 186 Urine Opiates Screen NEG Urine Barbiturates Screen NEG Urine Amphetamines Screen NEG Urine Benzodiazepines Screen NEG Urine Cocaine Screen NEG Urine Cannabinoids Screen NEG Date/Time Source Procedure Growth Status 02/14/17 19:35 Urine Clean Catch Urine Culture Pending Worksheet Diagnosis Primary Impression: Chronic paranoid schizophrenia Referrals: [facility] (Out patient) call for appointment Departure Forms: Tests/Procedures Patient Instructions: General Instructions, Schizophrenia (ED) Disposition: 01 DISCHARGE HOME Condition: Stable Dez Steve MD Feb 15, 2017 12:21
[2017-03-07] MEDS ORDERED: PROZ40CA PO (11:58)
[2017-03-07] MEDS ORDERED: RISP1TAB2 PO (11:58)
[2017-03-16] MEDS ORDERED: RISP1TAB2 PO (11:12)
[2017-03-16] MEDS ORDERED: ARIP1TAB12 PO (11:12)
[2017-03-16] MEDS ORDERED: CLON0.2T PO (11:12)
[2017-03-16] MEDS ORDERED: PROZ40CA PO (11:12)
== END 2017-02-15 13:17 | disposition home or self-care (01) ==
LOC: NEPD 18:46 → NEPJ 02-15 13:17
DX: Z02.89 Encounter for other administrative examinations (principal); F20.89 Other schizophrenia; F20.0 Paranoid schizophrenia; E11.9 Type 2 diabetes mellitus without complications; Z86.59 Personal history of other mental and behavioral disorders; Z87.09 Personal history of other diseases of the respiratory system; Z86.79 Personal history of other diseases of the circulatory system; Z86.69 Personal history of other diseases of the nervous system and sense organs
CPT/HCPCS: 80053; 80307; 81001; 85025; 87086; 99283

== ENCOUNTER 2017-04-23 13:26 | Emergency (ER) | payer OTHER ==
[~2017-04-23] VITALS: Ht 152.4 cm; Wt 83.0 kg
[~2017-04-23 13:26] MED LIST changes: -ACCUMIS25; -ALCO1PAD; -EZ SMIS; +IBUP1TAB7 PO; -IBUP800T23 PO; -NEBULIZER1 MI1
[2017-04-23 13:27] VITALS: BP 177/87; PULSE 98; RESP 20; TEMP 98.5; O2SAT 100
[2017-04-23] MEDS ORDERED: NAPROXEN 500 MG TAB PO ONE (14:30)
--- NOTE | 2017-04-23 14:35 | PD ---
HPI Chief Complaint: Back/ Neck Pain or Injury Time Seen by Provider: 14:18 Travel History International Travel<30 days: No Contact w/Intl Traveler<30days: No Traveled to known affect area: No History of Present Illness HPI This is a 27-year-old female who presents to the emergency department with back pain that's been going on for 1 day. She describes it as throbbing, intermittent, worse with walking and improved with rest. She says she's had some burning with urination. She denies any fevers, chills or vomiting. She did have a basketball toward event yesterday but doesn't remember injuring it. She denies any numbness or weakness and his eyes any difficulty walking. She's not lost her bowels or bladder. She has no history of IV drug use. PFSH Past Medical History Asthma: Yes Bipolar Disorder: Yes Anxiety: Yes Depression: Yes Cancer: No Cardiovascular Problems: No Cerebrovascular Accident: Yes (TIA) Diabetes: Yes Patient Takes Glucophage: No Diminished Hearing: No Endocrine: No Gastrointestinal Disorders: No Headaches: No Implanted Vascular Access Dvce: No Musculoskeletal: No Neurologic: Yes Psychiatric: Yes Respiratory: Yes Seizures: Yes Tetanus Vaccination: > 5 Years Influenza Vaccination: Yes ?: Not : 0 Para: 0 Miscarriage: 0 : 0 Past Surgical History Appendectomy: Yes Other Surgery: Yes Social History Alcohol Use: No Tobacco Use: Yes Substance Use: No (PAST MARIJUANA) Allergies-Medications (Allergen,Severity, Reaction): Coded Allergies: lurasidone (Unverified Allergy, Severe, SEIZURE, 04/23/17) Milk Containing Products (Unverified Allergy, Unknown, 04/23/17) new face soap ziprasidone (Unverified Allergy, Unknown, Seizures, 04/23/17) pt claims she had "two seizures" while taking Geodon. *MDRO Multi-Drug Resistant Organism (Unverified Adverse Reaction, Unknown , 04/23/17) MRSA finger wound in 2004 & 2005. MRSA PCR Screen positive 11/28/14. Reported Meds & Prescriptions Reported Meds & Active Scripts Active Risperidone 1 Mg Tab 1 Mg PO BID Prozac (Fluoxetine HCl) 40 Mg Cap 40 Mg PO DAILY Aripiprazole 10 Mg Tab 10 Mg PO DAILY Clonidine (Clonidine HCl) 0.2 Mg Tab 0.2 Mg PO HS Motrin Ib (Ibuprofen) 200 Mg Tablet 400 Mg PO TID Blood Glucose Test Strips Strips Strip 1 Ea .ROUTE DIRECTED Ibuprofen 800 Mg Tab 800 Mg PO Q8H PRN Albuterol Neb (Albuterol Sulfate) 2.5 Mg/0.5 Ml Neb 2.5 Mg NEB Q6HR NEB PRN The Albuterol Sulfate Inhalation Solution is concentrated and must be diluted. Ferrous Sulfate DR (Ferrous Sulfate) 324 Mg Tabdr 324 Mg PO DAILY Ventolin Hfa 18 GM Inh (Albuterol Sulfate) 90 Mcg/Act Aer 1 Puff INH Q4H PRN Lo Loestrin Fe 1/10 (Norethindrone-Ethinyl Estradiol-Fe) 1-10 Mg-Mcg Tab 1 Tab PO DAILY Review of Systems Except as stated in HPI: all other systems reviewed are Neg Physical Exam Narrative GENERAL:Well appearing, no acute distress SKIN: Focused skin assessment warm and dry. HEAD: Atraumatic. Normocephalic. EYES: Pupils equal and round. No injection or drainage. ENT: Moist mucous membranes NECK: Trachea midline. CARDIOVASCULAR: Regular rate and rhythm. No murmur appreciated. RESPIRATORY: Clear to auscultation. Breath sounds equal bilaterally. GASTROINTESTINAL: Abdomen soft, non-tender, nondistended. MUSCULOSKELETAL: Tender to palpation over the lumbar vertebral bodies NEUROLOGICAL: Awake and alert. No obvious cranial nerve deficits. Moving all extremities. PSYCHIATRIC: Appropriate mood and affect; insight and judgment normal. Data Data Last Documented VS Vital Signs Date Time Temp Pulse Resp B/P (MAP) Pulse Ox O2 Delivery O2 Flow Rate FiO2 04/23/17 13:27 98.5 98 20 177/87 (117) 100 Room Air Orders Orders Urinalysis - C+S If Indicated (04/23/17 14:23) Naproxen (Naprosyn) (04/23/17 14:30) Ed Urine Pregnancytest Poc (04/23/17 14:24) MDM Medical Decision Making Medical Screen Exam Complete: Yes Emergency Medical Condition: Yes Differential Diagnosis Urinary tract infection, pyelonephritis, musculoskeletal back pain, lumbar sprain, cauda equina syndrome Narrative Course This is a 27-year-old female who has a history of psychiatric illness who presents to the emergency department with lower back pain that's been going on since this morning. She did compete in a basketball torn enema yesterday. She has some tenderness along the lumbar vertebral bodies the paraspinal muscles. She has no red flags for cauda equina syndrome or epidural abscess. She also is complaining of some dysuria. Given her age I have a low suspicion for compression fracture and I don't think imaging is warranted. I suspect this reflects musculoskeletal pain. Plan for urinalysis and [id number] test to rule out urinary tract infection or . If these are negative I think patient can be discharged with anti- inflammatories. Vicky Zavala MD Apr 23, 2017 14:35
[2017-04-23 14:55] LABS: BLOOD, URINE NEG (NEG); GLUCOSE,URINE NEG (NEG); KETONE, URINE TRACE mg/dL (NEG); NITRITE,URINE NEG (NEG); PH, URINE 5.5 (5.0-8.5); URINE COLOR YELLOW (YELLW/STRAW)
[2017-04-23 15:09] LABS: BACTERIA, URINE MANY /hpf; RBC, URINE 0-3 /hpf (0-3)
[2017-04-23 15:10] LABS: COMMENT (UR) CULTURE INDICATED; CULTURE IF INDICATED CULTURE INDICATED
[2017-04-23] MEDS ORDERED: NAPR500T2 PO (15:22)
[2017-04-23] MEDS ORDERED: CEPH-460 PO (15:22)
--- NOTE | 2017-04-23 15:22 | PD ---
Data Data Last Documented VS Vital Signs Date Time Temp Pulse Resp B/P (MAP) Pulse Ox O2 Delivery O2 Flow Rate FiO2 04/23/17 13:27 98.5 98 20 177/87 (117) 100 Room Air Orders Orders Urinalysis - C+S If Indicated (04/23/17 14:23) Naproxen (Naprosyn) (04/23/17 14:30) Ed Urine Pregnancytest Poc (04/23/17 14:24) Urine Culture (04/23/17 14:25) Labs Laboratory Tests Test 04/23/17 14:25 Urine Color YELLOW Urine Turbidity HAZY Urine pH 5.5 Urine Specific Crane 1.025 Urine Protein TRACE mg/dL Urine Glucose (UA) NEG mg/dL Urine Ketones TRACE mg/dL Urine Occult Blood NEG Urine Nitrite NEG Urine Bilirubin NEG Urine Urobilinogen LESS THAN 2.0 MG/DL Urine Leukocyte Esterase SMALL Urine RBC 0-3 /hpf Urine WBC 6-8 /hpf Urine Squamous Epithelial Cells 6-8 /hpf Urine Bacteria MANY /hpf Microscopic Urinalysis Comment CULTURE INDICATED MDM Supervised Visit with LEONARDO: No Narrative Course This is a 27-year-old female who presents the emergency department with low back pain. She exerted herself yesterday during a basketball tournaments I suspect this is musculoskeletal pain. I did obtain a urinalysis because she said she had some dysuria which has large amount of bacteria. Patient will be discharged on Keflex. Otherwise she has a normal neurologic exam, no red flags for cauda equina syndrome, and is nontoxic appearing and appropriate for outpatient therapy. Patient will be discharged home. Diagnosis Primary Impression: Urinary tract infection Qualified Codes: N30.00 - Acute cystitis without hematuria Additional Impression: Low back sprain Qualified Codes: S33.9XXA - Sprain of unspecified parts of lumbar spine and pelvis, initial encounter Patient Instructions: General Instructions Additional Instruction: If you develop fever, persistent vomiting, back pain, or inability to eat return to the emergency department as your urine infection may have progressed to a kidney infection. Complete your antibiotics as prescribed. Stay well hydrated with Gatorade or water. Followup with your primary care physician in 2-3 days if your symptoms have not resolved. Med/Other Pt SpecificInfo: Prescription(s) given Scripts Naproxen (Naproxen) 500 Mg Tab 500 MG PO BID Y for PAIN SCALE 4 TO 10, #20 TAB 0 Refills Prov: Vicky Zavala MD 04/23/17 Cephalexin (Keflex) 500 Mg Cap 500 MG PO Q12H for Infection for 7 Days, #14 CAP 0 Refills Prov: Vicky Zavala MD 04/23/17 Disposition: 01 DISCHARGE HOME Condition: Stable Vicky Zavala MD Apr 23, 2017 15:22
[2017-04-26] MEDS ORDERED: FERR324T4 PO (08:59)
== END 2017-04-23 15:36 | disposition home or self-care (01) ==
LOC: NEPK 13:26
DX: N30.00 Acute cystitis without hematuria (principal); S33.9XXA Sprain of unspecified parts of lumbar spine and pelvis, initial encounter; X50.1XXA Overexertion from prolonged static or awkward postures, initial encounter; Y93.67 Activity, basketball; J45.909 Unspecified asthma, uncomplicated; E11.9 Type 2 diabetes mellitus without complications; Z72.0 Tobacco use
CPT/HCPCS: 81001; 84703; 87086; 99283

== ENCOUNTER → 2017-09-28 | Outpatient (CLI) | payer OTHER ==
[2017-09-28 15:17] LABS: AUTOMATED NEUTROPHIL # 3.9 TH/MM3 (1.8-7.7); BASOPHIL % 0.4 % (0.0-2.0); EOSINOPHIL # 0.1 TH/MM3 (0-0.4); EOSINOPHIL % 1.9 % (0.0-4.0); HEMATOCRIT 37.5 % (35.0-46.0); HEMO FLAGS DIFF FINAL; HEMOGLOBIN 12.5 GM/DL (11.6-15.3); LYMPH % 24.7 % (9.0-44.0); LYMPHOCYTE # 1.5 TH/MM3 (1.0-4.8); MEAN CELL VOLUME 84.9 FL (80.0-100.0); MEAN CORPUSCULAR HEMOGLOBIN 28.3 PG (27.0-34.0); MEAN CORPUSCULAR HGB CONC 33.3 % (32.0-36.0); MEAN PLATELET VOLUME 8.6 FL (7.0-11.0); MONO % 8.2 % (0.0-8.0); MONOCYTE # 0.5 TH/MM3 (0-0.9); NEUT % 64.8 % (16.0-70.0); PLATELET COUNT 267 TH/MM3 (150-450); RED BLOOD COUNT 4.41 MIL/MM3 (4.00-5.30); RED CELL DISTRIBUTION WIDTH 14.3 % (11.6-17.2)
[2017-09-28 15:43] LABS: ALBUMIN 3.6 GM/DL (3.4-5.0); ANION GAP 11 MEQ/L (5-15); AST (GOT) 39 U/L (15-37); BICARBONATE 24.5 MEQ/L (21.0-32.0); BLOOD UREA NITROGEN 9 MG/DL (7-18); CALCIUM 9.2 MG/DL (8.5-10.1); CHLORIDE 103 MEQ/L (98-107); CHOLESTEROL 183 MG/DL (120-200); CREATININE 0.77 MG/DL (0.50-1.00); GLOMERULAR FILTRATION RATE 107 ML/MIN (>89); GLUCOSE,FASTING 81 MG/DL (74-99); POTASSIUM 3.7 MEQ/L (3.5-5.1); SODIUM (NA) 138 MEQ/L (136-145)
[2017-09-28 15:53] LABS: ALKALINE PHOSPHATASE 111 U/L (45-117); ALT (GPT) 35 U/L (10-53); DIRECT BILIRUBIN ADULT 0.1 MG/DL (0.0-0.2); HDL CHOLESTEROL 50.7 MG/DL (40.0-60.0); LDL CHOLESTEROL 121 MG/DL (0-99); THYROXINE (T4) 11.5 MCG/DL (4.8-13.9); TOTAL BILIRUBIN ADULT 0.4 MG/DL (0.2-1.0); TOTAL PROTEIN 8.4 GM/DL (6.4-8.2); TRIGLYCERIDES 57 MG/DL (42-150)
[2017-09-28 17:34] LABS: HEMOGLOBIN F 1.5 %
[2017-09-28 19:08] LABS: HEMOGLOBIN A1C 6.4 % (4.3-6.0); HEMOGLOBIN A1a 1.1 %; HEMOGLOBIN A1b 1.8 %; HEMOGLOBIN Ao 84.5 %; HEMOGLOBIN LA1C 1.8 %; HEMOGLOBIN P3 3.7 %
[2017-09-30 03:55] LABS: PROLACTIN 13.6 ng/mL (4.8 - 23.3)
== END ==
LOC: CLAB 14:48
DX: F20.9 Schizophrenia, unspecified (principal); F41.1 Generalized anxiety disorder; Z79.899 Other long term (current) drug therapy
CPT/HCPCS: 36415; 80053; 80061; 82248; 83036; 84146; 84436; 84443; 85025